=== PATIENT | male | born 1975 ===

== ENCOUNTER 2022-11-02 23:47 | Inpatient (IN) | payer BC, SELFPAY ==
[2022-11-02 23:55] VITALS: BP 149/70; PULSE 113; RESP 19; TEMP 38.4; O2SAT 93; BMI 27.1
[2022-11-03] VITALS (28 sets, daily range): BP systolic 115–132; BP diastolic 63–77; PULSE 70–98; RESP 16–35; TEMP 36.4–39.8; O2SAT 92–96; BMI 27.1
--- NOTE | 2022-11-03 00:02 | DI.RAD.S_ITS ---
PROCEDURE: XR CHEST 1V INDICATIONS: suspected sepsis TECHNIQUE: One view of the chest was acquired. COMPARISON: None. FINDINGS: Surgical changes and devices: None. Lungs and pleura: There are indistinct opacities in the lung bases bilaterally. No pleural effusions or pneumothorax. Mediastinum: Mediastinal contours appear normal. Heart size is normal. Bones and chest wall: No suspicious bony lesions. Overlying soft tissues appear unremarkable. IMPRESSION: 1. Indistinct opacities in the lung bases bilaterally are nonspecific but suggestive of pneumonia. Dictated by: Alverto Sánchez M.D. on 11/03/2022 at 1:43 Approved by: Alverto Sánchez M.D. on 11/03/2022 at 1:44
[2022-11-03 00:32] LABS: INR 1.6 (0.9-1.3); Prothrombin Time 18.3 SECONDS (10.1-12.7)
[2022-11-03 00:34] LABS: Hematocrit 28.7 % (41-53); Hemoglobin 9.6 g/dL (13.5-17.5); Mean Corpuscular HGB Conc 33.6 % (30-36); Mean Corpuscular Volume 95.5 fL (80-100); Platelet Count 149 X10^3/uL (150-400); Red Blood Cell Count 3.01 X10^6/uL (4.5-5.9); Red Cell Distribution Width 16.9 % (11.6-14.8)
[2022-11-03 00:35] LABS: PTT Partial Thromboplastin Tim 29 SECONDS (26-36)
[2022-11-03] MEDS: ONDANSETRON 4 MG/2 ML INJ IV (00:37)
[2022-11-03] MEDS: SODIUM CHLORIDE 0.9% 1,000 ML 1000 ML IV (00:37)
[2022-11-03] MEDS: KETOROLAC 30 MG/ML VIAL 15 MG IV (00:37)
[2022-11-03 00:38] LABS: Add Manual Diff / Slide Review YES
[2022-11-03 00:45] LABS: Alanine Aminotransferase 22 IU/L (<50); Albumin 4.1 g/dL (3.5-5.0); Albumin Globulin Ratio 1.1 (1.0-2.8); Alkaline Phosphatase 51 U/L (38-126); Aspartate Aminotransferase 28 IU/L (17-59); BUN Creatinine Ratio 18.5 (6-22); Bilirubin Total 2.5 mg/dL (0.2-1.3); Blood Urea Nitrogen 27 mg/dL (9-20); Calcium 8.6 mg/dL (8.4-10.2); Carbon Dioxide 22 mmol/L (22-32); Chloride 92 mmol/L (98-107); Estimated Glomerular Filt Rate 59 mL/min (>60); Globulin 3.8 g/dL (1.7-4.1); Glucose 124 mg/dL (70-100); HEMOLYSIS < 15 (0-50); Lactate (Lactic Acid) 1.6 mmol/L (0.7-2.1); Lipase 51 U/L (23-300); Potassium 4.3 mmol/L (3.4-5.1); Sodium 125 mmol/L (137-145); Total Protein 7.9 g/dL (6.3-8.2)
--- NOTE | 2022-11-03 00:56 | ED_ITS ---
HPI - Abdominal Pain General Chief Complaint: Abdominal Pain Stated Complaint: Abnormal EKG Time Seen by Provider: 11/03/22 00:41 Source: patient Mode of arrival: Ambulatory History of Present Illness HPI narrative: Patient is a 47-year-old male with past medical history of hypertension presenting today with 5 days of diarrhea. He reports he and his girlfriend went to [place] they traveled around [place] the mountains they both had some diarrhea she actually got better but he is had persistent diarrhea about 8 times a day. Fever body aches. No nausea or vomiting some abdominal cramping. No chest pain or palpitations no dizziness or lightheadedness. However it has been pretty persistent and he generally does not feel. He denies any significant weight loss. Related Data Allergies Allergy/AdvReac Type Severity Reaction Status Date / Time No Known Drug Allergies Allergy Verified 11/02/22 23:54 Review of Systems Review of Systems ROS Unobtainable: All systems reviewed & are unremarkable except as noted in HPI and below Patient History Social History Smoking Status: Never smoker Smoking Status: Never smoker alcohol intake frequency: a few times a week Substance Use Type: does not use Exam Initial Vital Signs Initial Vital Signs: Vital Signs Temperature 101.1 F H 11/02/22 23:55 Pulse Rate 113 H 11/02/22 23:55 Respiratory Rate 19 11/02/22 23:55 Blood Pressure 149/70 H 11/02/22 23:55 Pulse Oximetry 93 11/02/22 23:55 Oxygen Delivery Method Room Air 11/02/22 23:55 GENERAL: Alert 47-year-old male slightly diaphoretic and warm to touch HEENT: Head atraumatic,EOMI, pupils reactive, face symmetric, moist mucous m embranes CARDIOVASCULAR: tachycardic regular no murmurs RESPIRATORY: Breath sounds equal bilaterally, no wheezes rales or rhonchi. ABDOMEN: Soft, nontender. Normoactive bowel sounds all 4 quadrants. No guarding or rebound. No splenomegaly or hepatomegaly appreciated EXTREMITIES: Normal range of motion, no clubbing or edema. Neurovascularly intact NEUROLOGICAL: Alert and oriented x4. SKIN: Warm, dry, no laceration, no petechiae, no rashes or lesions. Course Orders Ordered: ED Orders 11/03/22 00:02 XR chest 1V Stat EKG-12 Lead Stat RT Consult Eval and Treat NOW 11/03/22 00:15 Complete Blood Count AUTO DIFF Stat Comprehensive Metabolic Panel Stat LDH [Lactate Dehydrogenase] Stat Lactate (Lactic Acid) Stat Lipase Stat PTT Partial Thromboplastin Chapo Stat Pathologist Review (for CBC) Stat Procalcitonin Stat Prothrombin Time INR Stat Uric Acid Stat 11/03/22 00:40 GI Panel (Film Array) Stat Ictotest Urine Stat Urinalysis and Microscopic Stat Urine Culture Stat 11/03/22 00:48 Blood Culture Stat 11/03/22 00:57 CBC Auto Diff [Complete Blood Count AUTO DIFF] Stat RAUL [Direct Reji] Stat 11/03/22 02:35 COVID19 -Nasal RAPID Stat 11/03/22 07:03 Immunoglobulins Panel Stat flow cytometry blood [Leuk/ Lymphom Immunophenotypin] Stat Acetaminophen (Acetaminophen 325 Mg Tablet) 650 mg PO Q6H PRN PRN Reason: Fever/Mild Pain (1-3) Sodium Chloride (Normal Saline 0.9%) 1,000 mls @ 125 mls/hr IV CONT OLIVIA Naloxone HCl (Naloxone 0.4 Mg/Ml Vial) 0.2 mg IV Q2MIN PRN PRN Reason: Opiate Reversal Ondansetron HCl (Ondansetron 4 Mg/2 Ml Inj) 4 mg IV Q8HR PRN PRN Reason: Nausea And Vomiting Discontinued Medications Acetaminophen (Acetaminophen 325 Mg Tablet) 975 mg PO NOW ONE Stop: 11/03/22 05:10 Last Admin: 11/03/22 05:16 Dose: 975 mg Documented By: REEMA Heparin Sodium (Porcine) (Heparin 5,000 Unit/Ml Vial) 5,000 unit SUBCUT BID OLIVIA Sodium Chloride (Normal Saline 0.9%) 1,000 mls @ 1,000 mls/hr IV BOLUS ONE Stop: 11/03/22 01:01 Last Infusion: 11/03/22 02:10 Dose: 0 mls/hr Documented By: Admin: 11/03/22 00:37 Dose: 1,000 mls/hr Documented By: DEEP Sodium Chloride (Normal Saline 0.9%) 2,190 mls @ 730 mls/hr 30 ml/kg infuse over 3 hr (2190 ml) IV NOW ONE Stop: 11/03/22 03:45 Last Infusion: 11/03/22 02:42 Dose: 0 mls/hr Documented By: Admin: 11/03/22 01:09 Dose: 730 mls/hr Documented By: REEMA Levofloxacin (Levaquin) 750 mg in 150 mls @ 100 mls/hr IV NOW ONE Stop: 11/03/22 02:15 Last Infusion: 11/03/22 02:41 Dose: 0 mls/hr Documented By: Admin: 11/03/22 01:08 Dose: 100 mls/hr Documented By: REEMA Vancomycin HCl (Vancomycin) 1,250 mg in 250 mls @ 250 mls/hr IV NOW ONE Stop: 11/03/22 01:46 Last Infusion: 11/03/22 02:10 Dose: 0 mls/hr Documented By: Admin: 11/03/22 01:07 Dose: 250 mls/hr Documented By: REEMA Ketorolac Tromethamine (Ketorolac 30 Mg/Ml Vial) 15 mg IV NOW ONE Stop: 11/03/22 00:25 Last Admin: 11/03/22 00:37 Dose: 15 mg Documented By: DEEP Ondansetron HCl (Ondansetron 4 Mg Odt) 4 mg SL NOW PRN PRN Reason: Nausea And Vomiting Ondansetron HCl (Ondansetron 4 Mg/2 Ml Inj) 4 mg IV NOW PRN PRN Reason: Nausea And Vomiting Last Admin: 11/03/22 00:37 Dose: 4 mg Documented By: DEEP Vital Signs Vital signs: Vital Signs - 8 hr 11/02/22 23:55 11/03/22 01:02 11/03/22 01:03 Temperature 101.1 F H Pulse Rate 113 H 96 H Respiratory Rate 19 33 H Blood Pressure 149/70 H 119/67 Pulse Oximetry 93 93 Oxygen Delivery Method Room Air 11/03/22 01:03 11/03/22 01:30 11/03/22 01:30 Temperature Pulse Rate 96 H 90 Respiratory Rate 29 H 24 Blood Pressure 115/68 Pulse Oximetry 94 94 Oxygen Delivery Method 11/03/22 02:00 11/03/22 02:00 11/03/22 02:30 Temperature Pulse Rate 91 H Respiratory Rate 26 H Blood Pressure 115/67 119/70 Pulse Oximetry 93 Oxygen Delivery Method 11/03/22 03:00 11/03/22 03:00 11/03/22 03:30 Temperature Pulse Rate 88 Respiratory Rate 22 Blood Pressure 122/73 120/69 Pulse Oximetry 94 Oxygen Delivery Method 11/03/22 03:30 11/03/22 04:00 11/03/22 04:00 Temperature Pulse Rate 87 92 H Respiratory Rate 24 20 Blood Pressure 117/70 Pulse Oximetry 95 95 Oxygen Delivery Method 11/03/22 05:16 11/03/22 04:30 11/03/22 04:30 Temperature 103.6 F H Pulse Rate 95 H Respiratory Rate 32 H Blood Pressure 128/74 Pulse Oximetry 93 Oxygen Delivery Method 11/03/22 05:00 11/03/22 05:00 11/03/22 05:30 Temperature 103.6 F H Pulse Rate 97 H Respiratory Rate 33 H Blood Pressure 132/76 129/77 Pulse Oximetry 93 Oxygen Delivery Method 11/03/22 05:30 11/03/22 06:00 11/03/22 06:00 Temperature 102 F H Pulse Rate 98 H 92 H Respiratory Rate 31 H 32 H Blood Pressure 123/70 Pulse Oximetry 92 92 Oxygen Delivery Method 11/03/22 06:15 11/03/22 06:30 11/03/22 06:30 Temperature 102 F H Pulse Rate 91 H Respiratory Rate 35 H Blood Pressure 130/67 Pulse Oximetry 95 Oxygen Delivery Method MDM - Abdominal Pain Lab Data 11/03/22 00:57 11/03/22 00:15 Labs: Lab Results 11/03/22 11/03/22 11/03/22 Range/Units 00:15 00:15 00:15 WBC 220.0 H* (4.5-11.0) X10^3/uL RBC 3.01 L (4.5-5.9) X10^6/uL Hgb 9.6 L (13.5-17.5) g/dL Hct 28.7 L (41-53) % MCV 95.5 (80-100) fL MCH 32.0 (26-34) PG MCHC 33.6 (30-36) % RDW 16.9 H (11.6-14.8) % Plt Count 149 L (150-400) X10^3/uL Neut % (Auto) Not Reportable Lymph % (Auto) Not Reportable [place] % (Auto) Not Reportable Eos % (Auto) Not Reportable Baso % (Auto) Not Reportable Lymph # (Auto) Not Reportable [place] # (Auto) Not Reportable Baso # (Auto) Not Reportable Total Counted 100 Seg Neutrophils % 3.0 L (38-70) % Lymphocytes % (Manual) 91.0 H (25-45) % Atypical Lymphs % 6.0 H ( - 0) % Neutrophils # (Manual) 6600 H (5008-0482) /uL Smudge Cells 2+ H Toxic Granulation RBC Morphology See below Anisocytosis 1+ H PT 18.3 H (10.1-12.7) SECONDS INR 1.6 H (0.9-1.3) APTT 29 (26-36) SECONDS Sodium 125 L (137-145) mmol/L Potassium 4.3 (3.4-5.1) mmol/L Chloride 92 L (98-107) mmol/L Carbon Dioxide 22 (22-32) mmol/L BUN 27 H (9-20) mg/dL Creatinine 1.46 H (0.66-1.25) mg/dL Estimated GFR 59 L (>60) mL/min BUN/Creatinine Ratio 18.5 (6-22) Glucose 124 H (70-100) mg/dL Lactate (0.7-2.1) mmol/L Uric Acid (3.5-8.5) mg/dL Calcium 8.6 (8.4-10.2) mg/dL Total Bilirubin 2.5 H (0.2-1.3) mg/dL AST 28 (17-59) IU/L ALT 22 (<50) IU/L Alkaline Phosphatase 51 (38-126) U/L Lactate Dehydrogenase (120-246) U/L Total Protein 7.9 (6.3-8.2) g/dL Albumin 4.1 (3.5-5.0) g/dL Globulin 3.8 (1.7-4.1) g/dL Albumin/Globulin Ratio 1.1 (1.0-2.8) Lipase 51 (23-300) U/L Procalcitonin 6.38 H (<0.5) ng/mL Urine Color Urine Appearance Urine pH (4.5-8.0) Ur Specific [place] (1.000-1.035) Urine Protein (Negative) Urine Glucose (UA) (Negative) g/dL Urine Ketones (NEGATIVE) Urine Occult Blood (Negative) Urine Nitrate (Negative) Urine Bilirubin (NEGATIVE) Ur Bilirubin Confirm (Negative) Urine Urobilinogen (0.2) E.U./dL Ur Leukocyte Esterase (NEGATIVE) Urine RBC (0-5/HPF) Urine WBC (0-5/HPF) Ur Squamous Epith Cells (0-5/HPF) Ur Transition Epith Cell (0-5/HPF) Amorphous Sediment Urine Bacteria (None) Hyaline Casts (None) Granular Casts (None) WBC Casts (None) Ur Culture Indicated? Stl C. cayetanensis PCR (Not Detect) Stool Rotavirus (PCR) (Not Detect) Stool Adenovirus (PCR) (Not Detect) Stool Astrovirus (PCR) (Not Detect) Stool Cryptosporidium PCR (Not Detect) Stl E.coli Shiga Tox PCR (Not Detect) St Sh/Enteroin Ecoli PCR (Not Detect) Stool E coli O157 PCR Stl Enterotoxigenic E PCR (Not Detect) Stool EPEC (PCR) (Not Detect) Stl E. histolytica PCR (Not Detect) Stool Giardia Lamblia PCR (Not Detect) Stool Sapovirus (PCR) (Not Detect) Stl P. shigelloides PCR (Not Detect) St Y.enterocolitica PCR (Not Detect) Stool Vibrio (PCR) (Not Detect) Stl Vibrio cholerae PCR (Not Detect) Stl Enteroaggr Ecoli PCR (Not Detect) Stl Norovirus GI/GII PCR (Not Detect) Campylobacter (PCR) (Not Detect) C. difficile Tox (PCR) (Not Detect) SARS-CoV-2 (PCR) (Negative) Salmonella (PCR) (Not Detect) Direct Antiglob Test 11/03/22 11/03/22 11/03/22 Range/Units 00:15 00:15 00:40 WBC (4.5-11.0) X10^3/uL RBC (4.5-5.9) X10^6/uL Hgb (13.5-17.5) g/dL Hct (41-53) % MCV (80-100) fL MCH (26-34) PG MCHC (30-36) % RDW (11.6-14.8) % Plt Count (150-400) X10^3/uL Neut % (Auto) Lymph % (Auto) [place] % (Auto) Eos % (Auto) Baso % (Auto) Lymph # (Auto) [place] # (Auto) Baso # (Auto) Total Counted Seg Neutrophils % (38-70) % Lymphocytes % (Manual) (25-45) % Atypical Lymphs % ( - 0) % Neutrophils # (Manual) (7995-2546) /uL Smudge Cells Toxic Granulation RBC Morphology Anisocytosis PT (10.1-12.7) SECONDS INR (0.9-1.3) APTT (26-36) SECONDS Sodium (137-145) mmol/L Potassium (3.4-5.1) mmol/L Chloride (98-107) mmol/L Carbon Dioxide (22-32) mmol/L BUN (9-20) mg/dL Creatinine (0.66-1.25) mg/dL Estimated GFR (>60) mL/min BUN/Creatinine Ratio (6-22) Glucose (70-100) mg/dL Lactate 1.6 (0.7-2.1) mmol/L Uric Acid 6.6 (3.5-8.5) mg/dL Calcium (8.4-10.2) mg/dL Total Bilirubin (0.2-1.3) mg/dL AST (17-59) IU/L ALT (<50) IU/L Alkaline Phosphatase (38-126) U/L Lactate Dehydrogenase 224 (120-246) U/L Total Protein (6.3-8.2) g/dL Albumin (3.5-5.0) g/dL Globulin (1.7-4.1) g/dL Albumin/Globulin Ratio (1.0-2.8) Lipase (23-300) U/L Procalcitonin (<0.5) ng/mL Urine Color Urine Appearance Urine pH (4.5-8.0) Ur Specific [place] (1.000-1.035) Urine Protein (Negative) Urine Glucose (UA) (Negative) g/dL Urine Ketones (NEGATIVE) Urine Occult Blood (Negative) Urine Nitrate (Negative) Urine Bilirubin (NEGATIVE) Ur Bilirubin Confirm (Negative) Urine Urobilinogen (0.2) E.U./dL Ur Leukocyte Esterase (NEGATIVE) Urine RBC (0-5/HPF) Urine WBC (0-5/HPF) Ur Squamous Epith Cells (0-5/HPF) Ur Transition Epith Cell (0-5/HPF) Amorphous Sediment Urine Bacteria (None) Hyaline Casts (None) Granular Casts (None) WBC Casts (None) Ur Culture Indicated? Stl C. cayetanensis PCR Not detected (Not Detect) Stool Rotavirus (PCR) Not detected (Not Detect) Stool Adenovirus (PCR) Not detected (Not Detect) Stool Astrovirus (PCR) Not detected (Not Detect) Stool Cryptosporidium PCR Not detected (Not Detect) Stl E.coli Shiga Tox PCR Not detected (Not Detect) St Sh/Enteroin Ecoli PCR Not detected (Not Detect) Stool E coli O157 PCR Not Reportable Stl Enterotoxigenic E PCR Detected H (Not Detect) Stool EPEC (PCR) Detected H (Not Detect) Stl E. histolytica PCR Not detected (Not Detect) Stool Giardia Lamblia PCR Not detected (Not Detect) Stool Sapovirus (PCR) Not detected (Not Detect) Stl P. shigelloides PCR Not detected (Not Detect) St Y.enterocolitica PCR Not detected (Not Detect) Stool Vibrio (PCR) Not detected (Not Detect) Stl Vibrio cholerae PCR Not detected (Not Detect) Stl Enteroaggr Ecoli PCR Detected H (Not Detect) Stl Norovirus GI/GII PCR Not detected (Not Detect) Campylobacter (PCR) Not detected (Not Detect) C. difficile Tox (PCR) Not detected (Not Detect) SARS-CoV-2 (PCR) (Negative) Salmonella (PCR) Not detected (Not Detect) Direct Antiglob Test 11/03/22 11/03/22 11/03/22 Range/Units 00:40 00:57 00:57 WBC 206.1 H* (4.5-11.0) X10^3/uL RBC 2.77 L (4.5-5.9) X10^6/uL Hgb 8.9 L (13.5-17.5) g/dL Hct 26.2 L (41-53) % MCV 94.9 (80-100) fL MCH 32.1 (26-34) PG MCHC 33.8 (30-36) % RDW 16.8 H (11.6-14.8) % Plt Count 137 L (150-400) X10^3/uL Neut % (Auto) Not Reportable Lymph % (Auto) Not Reportable [place] % (Auto) Not Reportable Eos % (Auto) Not Reportable Baso % (Auto) Not Reportable Lymph # (Auto) Not Reportable [place] # (Auto) Not Reportable Baso # (Auto) Not Reportable Total Counted 100 Seg Neutrophils % 3.0 L (38-70) % Lymphocytes % (Manual) 88.0 H (25-45) % Atypical Lymphs % 9.0 H ( - 0) % Neutrophils # (Manual) 6183 H (1332-3389) /uL Smudge Cells 2+ H Toxic Granulation Present H RBC Morphology See below Anisocytosis 1+ H PT (10.1-12.7) SECONDS INR (0.9-1.3) APTT (26-36) SECONDS Sodium (137-145) mmol/L Potassium (3.4-5.1) mmol/L Chloride (98-107) mmol/L Carbon Dioxide (22-32) mmol/L BUN (9-20) mg/dL Creatinine (0.66-1.25) mg/dL Estimated GFR (>60) mL/min BUN/Creatinine Ratio (6-22) Glucose (70-100) mg/dL Lactate (0.7-2.1) mmol/L Uric Acid (3.5-8.5) mg/dL Calcium (8.4-10.2) mg/dL Total Bilirubin (0.2-1.3) mg/dL AST (17-59) IU/L ALT (<50) IU/L Alkaline Phosphatase (38-126) U/L Lactate Dehydrogenase (120-246) U/L Total Protein (6.3-8.2) g/dL Albumin (3.5-5.0) g/dL Globulin (1.7-4.1) g/dL Albumin/Globulin Ratio (1.0-2.8) Lipase (23-300) U/L Procalcitonin (<0.5) ng/mL Urine Color Dark yellow Urine Appearance Cloudy Urine pH 5.0 (4.5-8.0) Ur Specific [place] >=1.030 H (1.000-1.035) Urine Protein 3+ H (Negative) Urine Glucose (UA) Negative (Negative) g/dL Urine Ketones Trace H (NEGATIVE) Urine Occult Blood 1+ H (Negative) Urine Nitrate Positive H (Negative) Urine Bilirubin 2+ H (NEGATIVE) Ur Bilirubin Confirm Positive H (Negative) Urine Urobilinogen 1.0 (0.2) E.U./dL Ur Leukocyte Esterase Trace H (NEGATIVE) Urine RBC 1-5/hpf (0-5/HPF) Urine WBC 0-1/hpf (0-5/HPF) Ur Squamous Epith Cells 0-1 /hpf (0-5/HPF) Ur Transition Epith Cell 0-1/hpf (0-5/HPF) Amorphous Sediment 2+ Urine Bacteria Moderate (10-30) H (None) Hyaline Casts 0-1/lpf (None) Granular Casts 5-10/lpf (None) WBC Casts 0-1/lpf (None) Ur Culture Indicated? Specimen cultured Stl C. cayetanensis PCR (Not Detect) Stool Rotavirus (PCR) (Not Detect) Stool Adenovirus (PCR) (Not Detect) Stool Astrovirus (PCR) (Not Detect) Stool Cryptosporidium PCR (Not Detect) Stl E.coli Shiga Tox PCR (Not Detect) St Sh/Enteroin Ecoli PCR (Not Detect) Stool E coli O157 PCR Stl Enterotoxigenic E PCR (Not Detect) Stool EPEC (PCR) (Not Detect) Stl E. histolytica PCR (Not Detect) Stool Giardia Lamblia PCR (Not Detect) Stool Sapovirus (PCR) (Not Detect) Stl P. shigelloides PCR (Not Detect) St Y.enterocolitica PCR (Not Detect) Stool Vibrio (PCR) (Not Detect) Stl Vibrio cholerae PCR (Not Detect) Stl Enteroaggr Ecoli PCR (Not Detect) Stl Norovirus GI/GII PCR (Not Detect) Campylobacter (PCR) (Not Detect) C. difficile Tox (PCR) (Not Detect) SARS-CoV-2 (PCR) (Negative) Salmonella (PCR) (Not Detect) Direct Antiglob Test Positive 11/03/22 Range/Units 02:35 WBC (4.5-11.0) X10^3/uL RBC (4.5-5.9) X10^6/uL Hgb (13.5-17.5) g/dL Hct (41-53) % MCV (80-100) fL MCH (26-34) PG MCHC (30-36) % RDW (11.6-14.8) % Plt Count (150-400) X10^3/uL Neut % (Auto) Lymph % (Auto) [place] % (Auto) Eos % (Auto) Baso % (Auto) Lymph # (Auto) [place] # (Auto) Baso # (Auto) Total Counted Seg Neutrophils % (38-70) % Lymphocytes % (Manual) (25-45) % Atypical Lymphs % ( - 0) % Neutrophils # (Manual) (1605-5732) /uL Smudge Cells Toxic Granulation RBC Morphology Anisocytosis PT (10.1-12.7) SECONDS INR (0.9-1.3) APTT (26-36) SECONDS Sodium (137-145) mmol/L Potassium (3.4-5.1) mmol/L Chloride (98-107) mmol/L Carbon Dioxide (22-32) mmol/L BUN (9-20) mg/dL Creatinine (0.66-1.25) mg/dL Estimated GFR (>60) mL/min BUN/Creatinine Ratio (6-22) Glucose (70-100) mg/dL Lactate (0.7-2.1) mmol/L Uric Acid (3.5-8.5) mg/dL Calcium (8.4-10.2) mg/dL Total Bilirubin (0.2-1.3) mg/dL AST (17-59) IU/L ALT (<50) IU/L Alkaline Phosphatase (38-126) U/L Lactate Dehydrogenase (120-246) U/L Total Protein (6.3-8.2) g/dL Albumin (3.5-5.0) g/dL Globulin (1.7-4.1) g/dL Albumin/Globulin Ratio (1.0-2.8) Lipase (23-300) U/L Procalcitonin (<0.5) ng/mL Urine Color Urine Appearance Urine pH (4.5-8.0) Ur Specific [place] (1.000-1.035) Urine Protein (Negative) Urine Glucose (UA) (Negative) g/dL Urine Ketones (NEGATIVE) Urine Occult Blood (Negative) Urine Nitrate (Negative) Urine Bilirubin (NEGATIVE) Ur Bilirubin Confirm (Negative) Urine Urobilinogen (0.2) E.U./dL Ur Leukocyte Esterase (NEGATIVE) Urine RBC (0-5/HPF) Urine WBC (0-5/HPF) Ur Squamous Epith Cells (0-5/HPF) Ur Transition Epith Cell (0-5/HPF) Amorphous Sediment Urine Bacteria (None) Hyaline Casts (None) Granular Casts (None) WBC Casts (None) Ur Culture Indicated? Stl C. cayetanensis PCR (Not Detect) Stool Rotavirus (PCR) (Not Detect) Stool Adenovirus (PCR) (Not Detect) Stool Astrovirus (PCR) (Not Detect) Stool Cryptosporidium PCR (Not Detect) Stl E.coli Shiga Tox PCR (Not Detect) St Sh/Enteroin Ecoli PCR (Not Detect) Stool E coli O157 PCR Stl Enterotoxigenic E PCR (Not Detect) Stool EPEC (PCR) (Not Detect) Stl E. histolytica PCR (Not Detect) Stool Giardia Lamblia PCR (Not Detect) Stool Sapovirus (PCR) (Not Detect) Stl P. shigelloides PCR (Not Detect) St Y.enterocolitica PCR (Not Detect) Stool Vibrio (PCR) (Not Detect) Stl Vibrio cholerae PCR (Not Detect) Stl Enteroaggr Ecoli PCR (Not Detect) Stl Norovirus GI/GII PCR (Not Detect) Campylobacter (PCR) (Not Detect) C. difficile Tox (PCR) (Not Detect) SARS-CoV-2 (PCR) Negative (Negative) Salmonella (PCR) (Not Detect) Direct Antiglob Test MDM Narrative Medical decision making narrative: Patient 47-year-old male presenting to gastroenteritis like symptoms her traveling. He is had about 5-6 days of diarrhea is tolerating is febrile and here in the ED. Sepsis orders started. He is found to have critical WBC of 220. It is rechecked in his 2005. Differential includes smudge cells concerning for CLL. He has no prior history of CLL leukemia. Lactate 1.6 with procalcitonin 6.3. GI panel is positive for multiple coli infections. Urine is also positive for nitrates. Patient is given vancomycin and Levaquin. He continues to have fever in the emergency department is overall stable. Sodium is mildly low 125, potassium 4.3 chloride 92 BUN 271.46. Mildly dehydrated. Bilirubin of be 2.5 as well. , hematology [facility] updated patient's symptoms test results states this is likely an incidental finding. Treat underlying gastroenteritis 1st and then have him follow-up outpatient for treatment of what is likely CLL. No need for emergent transfer. , furnace loader at [facility] dated patient's symptoms test results request further orders. Agrees that this is likely an incidental finding and to treat the underlying process however does need follow-up closely. Dr. Louis accepts patient Discharge Plan Departure Patient Disposition: Admitted as Observation Clinical Impression: Gastroenteritis, Chronic lymphocytic leukemia Admit Date/Time: 11/03/22 06:37 Admit Provider: Ervin Louis
[2022-11-03 00:59] LABS: Neutrophils Absolute Manual 6600 /uL (3000-5900); Total Cells Counted 100
[2022-11-03 01:00] LABS: Anisocytosis 1+
[2022-11-03 01:01] LABS: Procalcitonin 6.38 ng/mL (<0.5); Smudge Cells 2+
[2022-11-03] MEDS: VANCOMYCIN 1,250 MG/250 ML PIGGYBACK 250 MG IV ×2 (01:07→12:14)
[2022-11-03] MEDS: levoFLOXacin 750 MG/150 ML PIGGYBACK 100 MG IV (01:08)
[2022-11-03] MEDS: SODIUM CHLORIDE 0.9% 2,190 ML 730 ML IV (01:09)
[2022-11-03 01:10] LABS: Lactate Dehydrogenase 224 U/L (120-246); Uric Acid 6.6 mg/dL (3.5-8.5)
[2022-11-03 01:12] LABS: Hematocrit 26.2 % (41-53); Hemoglobin 8.9 g/dL (13.5-17.5); Mean Corpuscular HGB Conc 33.8 % (30-36); Mean Corpuscular Hemoglobin 32.1 PG (26-34); Mean Corpuscular Volume 94.9 fL (80-100); Platelet Count 137 X10^3/uL (150-400); Red Blood Cell Count 2.77 X10^6/uL (4.5-5.9); Red Cell Distribution Width 16.8 % (11.6-14.8)
[2022-11-03 01:14] LABS: Add Manual Diff / Slide Review YES
[2022-11-03 01:15] LABS: White Blood Cell Count 206.1 X10^3/uL (4.5-11.0)
[2022-11-03 01:43] LABS: Anisocytosis 1+; Neutrophils Absolute Manual 6183 /uL (3000-5900); Smudge Cells 2+; Total Cells Counted 100; Toxic Granulation Present
[2022-11-03 02:50] LABS: Adenovirus F 40/41 Not Detected (Not Detect); Astrovirus Not Detected (Not Detect); Campylobacter Not Detected (Not Detect); Clostridium difficile toxin AB Not Detected (Not Detect); Cryptosporidium Not Detected (Not Detect); Cyclospora cayetanensis Not Detected (Not Detect); Entamoeba histolytica Not Detected (Not Detect); Enteroaggregative E.coli Detected (Not Detect); Enteropathogenic E.coli Detected (Not Detect); Enterotoxigenic E.coli It/st Detected (Not Detect); Giardia lamblia Not Detected (Not Detect); Norovirus GI/GII Not Detected (Not Detect); Plesiomonsa shigelloides Not Detected (Not Detect); Rotavirus A Not Detected (Not Detect); Salmonella Not Detected (Not Detect); Sapovirus Not Detected (Not Detect); Shiga-like toxin-prod E.coli Not Detected (Not Detect); Shigella/Enteroinvasive E.coli Not Detected (Not Detect); Vibrio Not Detected (Not Detect); Vibrio cholerae Not Detected (Not Detect); Yersinia enterocolitica Not Detected (Not Detect)
[2022-11-03 03:10] LABS: COVID19 -Nasal RAPID Negative (Negative)
[2022-11-03 03:25] LABS: Appearance Urine UA CLOUDY; Bilirubin Urine UA 2+ (NEGATIVE); Glucose Urine UA NEGATIVE (Negative); Ketones Urine UA TRACE (NEGATIVE); Leukocyte Esterase Urine UA TRACE (NEGATIVE); Nitrite Urine UA POSITIVE (Negative); Occult Blood Urine UA 1+ (Negative); Protein Urine UA 3+ (Negative); Specific Gravity Urine UA >=1.030 (1.000-1.035)
[2022-11-03 03:28] LABS: Color Urine UA Dark Yellow; Ictotest Urine Positive (Negative); WBC Urine 0-1/HPF (0-5/HPF)
[2022-11-03 03:29] LABS: Bacteria Urine Moderate (10-30); Hyaline Casts Urine 0-1/LPF; RBC Urine 1-5/HPF (0-5/HPF); Squamous Epithelial Cell Urine 0-1 /HPF (0-5/HPF)
[2022-11-03 03:30] LABS: Granular Casts Urine 5-10/LPF; White Blood Cell Casts Urine 0-1/LPF
[2022-11-03 03:31] LABS: Amorphous Sediment Urine 2+; Transitional Epi Cells Urine 0-1/HPF (0-5/HPF)
[2022-11-03 03:36] LABS: Culture Indicated Urine Specimen Cultured
--- NOTE | 2022-11-03 04:02 | PC.NURSE ---
Pt only received one EKG at beginning of stay. 3 orders were put in by RT and charted as completed but only 1 was actually completed.
[2022-11-03] MEDS: ACETAMINOPHEN 325 MG TABLET 975 MG PO (05:16)
--- NOTE | 2022-11-03 07:20 | P.HP_ITS ---
History of Present Illness History of Present Illness Date Patient Seen: 11/03/22 Time Patient Seen: 06:45 Chief complaint: Abnormal EKG Narrative: Mr. Lundberg is a 47M with PMH HTN who presents to the hospital with diarrhea. He had recent travel to [place]. 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 He developed diarrhea and abdominal cramping 6 days ago on Saturday. He has noted no blood in his stool. He has had 6-8 episodes of diarrhea daily. He feels he has been able to stay hydrated. He has no lightheaded or dizziness. Prior to this illness he has had no issues, no fevers, chills, night sweats, weight loss. He has noted no brashes, bruising, abnormal bleeding. He has noted no fatigue. In the ED workup was done, vitals notable for fever to 101.1, heart rate 110s, blood pressure 140s/70s, sats 93% on room air. Labs reviewed by me and notable for WBC 206.1, hgb 8.9, plts 137. Na 125, BUN 27, creatinine 1.46. Bili 2.5. Procal 6.38. Ua notable for occult blood, nitrates, bilirubin, trace leuk esterase, moderate bacteria. Stool PCR notable for ETEC, EAEC, EPEC but negative for shiga toxian and e. coli o157. Chest xray reviewed by me and with questionable lung opacity. He was ordered for fluids and antibiotics and admitted for further treatment. Family history: he denies any significant family history of cancer [facility] Social History Smoking Status: Never smoker Meds Home Medications and Allergies Allergies Allergy/AdvReac Type Severity Reaction Status Date / Time No Known Drug Allergies Allergy Verified 11/02/22 23:54 Review of Systems Review of Systems Narrative: 14 sytstems reviewed and negative aside from what is noted in HPI Exam Vital Signs (past 8 hours): - 11/02/22 23:55 11/03/22 01:02 11/03/22 01:03 Temperature 101.1 F H Pulse Rate 113 H 96 H Respiratory Rate 19 33 H Blood Pressure 149/70 H 119/67 Pulse Oximetry 93 93 Oxygen Delivery Method Room Air 11/03/22 01:03 11/03/22 01:30 11/03/22 01:30 Temperature Pulse Rate 96 H 90 Respiratory Rate 29 H 24 Blood Pressure 115/68 Pulse Oximetry 94 94 Oxygen Delivery Method 11/03/22 02:00 11/03/22 02:00 11/03/22 02:30 Temperature Pulse Rate 91 H Respiratory Rate 26 H Blood Pressure 115/67 119/70 Pulse Oximetry 93 Oxygen Delivery Method 11/03/22 03:00 11/03/22 03:00 11/03/22 03:30 Temperature Pulse Rate 88 Respiratory Rate 22 Blood Pressure 122/73 120/69 Pulse Oximetry 94 Oxygen Delivery Method 11/03/22 03:30 11/03/22 04:00 11/03/22 04:00 Temperature Pulse Rate 87 92 H Respiratory Rate 24 20 Blood Pressure 117/70 Pulse Oximetry 95 95 Oxygen Delivery Method 11/03/22 05:16 11/03/22 04:30 11/03/22 04:30 Temperature 103.6 F H Pulse Rate 95 H Respiratory Rate 32 H Blood Pressure 128/74 Pulse Oximetry 93 Oxygen Delivery Method 11/03/22 05:00 11/03/22 05:00 11/03/22 05:30 Temperature 103.6 F H Pulse Rate 97 H Respiratory Rate 33 H Blood Pressure 132/76 129/77 Pulse Oximetry 93 Oxygen Delivery Method 11/03/22 05:30 11/03/22 06:00 11/03/22 06:00 Temperature 102 F H Pulse Rate 98 H 92 H Respiratory Rate 31 H 32 H Blood Pressure 123/70 Pulse Oximetry 92 92 Oxygen Delivery Method 11/03/22 06:15 Temperature 102 F H Pulse Rate Respiratory Rate Blood Pressure Pulse Oximetry Oxygen Delivery Method Oxygen Delivery Method Room Air Narrative Exam Narrative: GEN: no acute distress HEENT: moist mucous membranes, PERRL NECK: trachea midline, no jvd PULM: clear bilaterally, no wheezes, rhonchi, rales CV: regular rate and rhythm, no murmurs ABD: soft, nontender, nondistended, no organomegaly EXT: warm and well perfused with no edema SKIN: no rashes, petechia noted NEURO: awake, alert, oriented, no focal deficits Objective Labs 11/03/22 00:57 11/03/22 00:15 Labs: Laboratory Results - last 24 hr 11/03/22 11/03/22 11/03/22 00:15 00:15 00:15 WBC 220.0 H* RBC 3.01 L Hgb 9.6 L Hct 28.7 L MCV 95.5 MCH 32.0 MCHC 33.6 RDW 16.9 H Plt Count 149 L Neut % (Auto) Not Reportable Lymph % (Auto) Not Reportable Island % (Auto) Not Reportable Eos % (Auto) Not Reportable Baso % (Auto) Not Reportable Lymph # (Auto) Not Reportable [place] # (Auto) Not Reportable Baso # (Auto) Not Reportable Total Counted 100 Seg Neutrophils % 3.0 L Lymphocytes % (Manual) 91.0 H Atypical Lymphs % 6.0 H Neutrophils # (Manual) 6600 H Smudge Cells 2+ H Toxic Granulation RBC Morphology See below Anisocytosis 1+ H PT 18.3 H INR 1.6 H APTT 29 Sodium 125 L Potassium 4.3 Chloride 92 L Carbon Dioxide 22 BUN 27 H Creatinine 1.46 H Estimated GFR 59 L BUN/Creatinine Ratio 18.5 Glucose 124 H Lactate Uric Acid Calcium 8.6 Total Bilirubin 2.5 H AST 28 ALT 22 Alkaline Phosphatase 51 Lactate Dehydrogenase Total Protein 7.9 Albumin 4.1 Globulin 3.8 Albumin/Globulin Ratio 1.1 Lipase 51 Procalcitonin 6.38 H Urine Color Urine Appearance Urine pH Ur Specific [place] Urine Protein Urine Glucose (UA) Urine Ketones Urine Occult Blood Urine Nitrate Urine Bilirubin Ur Bilirubin Confirm Urine Urobilinogen Ur Leukocyte Esterase Urine RBC Urine WBC Ur Squamous Epith Cells Ur Transition Epith Cell Amorphous Sediment Urine Bacteria Hyaline Casts Granular Casts WBC Casts Ur Culture Indicated? Stl C. cayetanensis PCR Stool Rotavirus (PCR) Stool Adenovirus (PCR) Stool Astrovirus (PCR) Stool Cryptosporidium PCR Stl E.coli Shiga Tox PCR St Sh/Enteroin Ecoli PCR Stool E coli O157 PCR Stl Enterotoxigenic E PCR Stool EPEC (PCR) Stl E. histolytica PCR Stool Giardia Lamblia PCR Stool Sapovirus (PCR) Stl P. shigelloides PCR St Y.enterocolitica PCR Stool Vibrio (PCR) Stl Vibrio cholerae PCR Stl Enteroaggr Ecoli PCR Stl Norovirus GI/GII PCR Campylobacter (PCR) C. difficile Tox (PCR) SARS-CoV-2 (PCR) Salmonella (PCR) 11/03/22 11/03/22 11/03/22 00:15 00:15 00:40 WBC RBC Hgb Hct MCV MCH MCHC RDW Plt Count Neut % (Auto) Lymph % (Auto) [place] % (Auto) Eos % (Auto) Baso % (Auto) Lymph # (Auto) [place] # (Auto) Baso # (Auto) Total Counted Seg Neutrophils % Lymphocytes % (Manual) Atypical Lymphs % Neutrophils # (Manual) Smudge Cells Toxic Granulation RBC Morphology Anisocytosis PT INR APTT Sodium Potassium Chloride Carbon Dioxide BUN Creatinine Estimated GFR BUN/Creatinine Ratio Glucose Lactate 1.6 Uric Acid 6.6 Calcium Total Bilirubin AST ALT Alkaline Phosphatase Lactate Dehydrogenase 224 Total Protein Albumin Globulin Albumin/Globulin Ratio Lipase Procalcitonin Urine Color Urine Appearance Urine pH Ur Specific [place] Urine Protein Urine Glucose (UA) Urine Ketones Urine Occult Blood Urine Nitrate Urine Bilirubin Ur Bilirubin Confirm Urine Urobilinogen Ur Leukocyte Esterase Urine RBC Urine WBC Ur Squamous Epith Cells Ur Transition Epith Cell Amorphous Sediment Urine Bacteria Hyaline Casts Granular Casts WBC Casts Ur Culture Indicated? Stl C. cayetanensis PCR Not detected Stool Rotavirus (PCR) Not detected Stool Adenovirus (PCR) Not detected Stool Astrovirus (PCR) Not detected Stool Cryptosporidium PCR Not detected Stl E.coli Shiga Tox PCR Not detected St Sh/Enteroin Ecoli PCR Not detected Stool E coli O157 PCR Not Reportable Stl Enterotoxigenic E PCR Detected H Stool EPEC (PCR) Detected H Stl E. histolytica PCR Not detected Stool Giardia Lamblia PCR Not detected Stool Sapovirus (PCR) Not detected Stl P. shigelloides PCR Not detected St Y.enterocolitica PCR Not detected Stool Vibrio (PCR) Not detected Stl Vibrio cholerae PCR Not detected Stl Enteroaggr Ecoli PCR Detected H Stl Norovirus GI/GII PCR Not detected Campylobacter (PCR) Not detected C. difficile Tox (PCR) Not detected SARS-CoV-2 (PCR) Salmonella (PCR) Not detected 11/03/22 11/03/22 11/03/22 00:40 00:57 02:35 WBC 206.1 H* RBC 2.77 L Hgb 8.9 L Hct 26.2 L MCV 94.9 MCH 32.1 MCHC 33.8 RDW 16.8 H Plt Count 137 L Neut % (Auto) Not Reportable Lymph % (Auto) Not Reportable [place] % (Auto) Not Reportable Eos % (Auto) Not Reportable Baso % (Auto) Not Reportable Lymph # (Auto) Not Reportable [place] # (Auto) Not Reportable Baso # (Auto) Not Reportable Total Counted 100 Seg Neutrophils % 3.0 L Lymphocytes % (Manual) 88.0 H Atypical Lymphs % 9.0 H Neutrophils # (Manual) 6183 H Smudge Cells 2+ H Toxic Granulation Present H RBC Morphology See below Anisocytosis 1+ H PT INR APTT Sodium Potassium Chloride Carbon Dioxide BUN Creatinine Estimated GFR BUN/Creatinine Ratio Glucose Lactate Uric Acid Calcium Total Bilirubin AST ALT Alkaline Phosphatase Lactate Dehydrogenase Total Protein Albumin Globulin Albumin/Globulin Ratio Lipase Procalcitonin Urine Color Dark yellow Urine Appearance Cloudy Urine pH 5.0 Ur Specific [place] >=1.030 H Urine Protein 3+ H Urine Glucose (UA) Negative Urine Ketones Trace H Urine Occult Blood 1+ H Urine Nitrate Positive H Urine Bilirubin 2+ H Ur Bilirubin Confirm Positive H Urine Urobilinogen 1.0 Ur Leukocyte Esterase Trace H Urine RBC 1-5/hpf Urine WBC 0-1/hpf Ur Squamous Epith Cells 0-1 /hpf Ur Transition Epith Cell 0-1/hpf Amorphous Sediment 2+ Urine Bacteria Moderate (10-30) H Hyaline Casts 0-1/lpf Granular Casts 5-10/lpf WBC Casts 0-1/lpf Ur Culture Indicated? Specimen cultured Stl C. cayetanensis PCR Stool Rotavirus (PCR) Stool Adenovirus (PCR) Stool Astrovirus (PCR) Stool Cryptosporidium PCR Stl E.coli Shiga Tox PCR St Sh/Enteroin Ecoli PCR Stool E coli O157 PCR Stl Enterotoxigenic E PCR Stool EPEC (PCR) Stl E. histolytica PCR Stool Giardia Lamblia PCR Stool Sapovirus (PCR) Stl P. shigelloides PCR St Y.enterocolitica PCR Stool Vibrio (PCR) Stl Vibrio cholerae PCR Stl Enteroaggr Ecoli PCR Stl Norovirus GI/GII PCR Campylobacter (PCR) C. difficile Tox (PCR) SARS-CoV-2 (PCR) Negative Salmonella (PCR) Assessment & Plan Assessment & Plan narrative: 1. Sepsis secondary to E. coli gastroenteritis and UTI -patient presented with tachycardia, tachypnea, fevers -has organ dysfunction with elevated creatinine -etiology is e. coli diarrhea with eaec, etec, epec noted -patient denies bloody stool -while he does have anemia and hanny, and is possibly cause by hus, more likely related to sepsis and malignancy -additionally most common cause of hus is ehec and stool negative for shiga toxin and o157 which are most likely cause of hus 2. Probable CLL -presenting with WBC >200k -differential shows lymphocytes and smudge cells, consistent with CLL -infections are likely in setting of depressed immune system -fish, immunoglobins sent -will need urgent oncology referral upon discharge as likely has active disease and would be a candidate for treatment 3. Anemia -initial hemoglobin quite low in 9s, MCV normal -could be secondary to malignancy vs TMA syndrome, possibly enlarged spleen -bilirubin is elevated, possibly secondary to hemolysis, however ldh is normal -fractionated bilirubin -send haptoglobin, retic, iron panel, folate, b12 -blood smear sent -continue to trend and transfuse for hgb <7 4. Thrombocytopenia -etiology may be secondary to infection vs malignancy -trend daily -no indication for transfusion currently 5. HANNY -suspect secondary to hypovolemia from GI losses and possibly from infection -however patient does have E. coli infection and also notably anemia, and thrombocytopenia -has occult blood in urine -other consideration is possible HUS, or another disease in TMA syndrome -blood smear sent to [facility] for schistocytes -trend creatinine 6. Hyponatremia -suspect hypovolemic secondary to GI losses -will start IV fluids and recheck 7. Coagulopathy -PT elevated, with initial PTT normal -etiology unclear -however given sepsis would have some concern for DIC -no evidence of bleeding or thrombosis -send fibrinogen and d-dimer -already sent blood smear as above -treat sepsis as above and treat cell line abnormalities as above I have discussed plan and obtained history from patient and partner at bedside. I have discussed plan of care with ED physician and bedside nurse. I have re viewed labs, chest imaging. CODE: Full Proxy: None
--- NOTE | 2022-11-03 08:23 | DI.CT.S_ITS ---
PROCEDURE: CT CHEST ABD PEL WO CON INDICATIONS: neutropenic fever TECHNIQUE: After the administration of oral contrast, 5 mm thick sections acquired from the lung apices to the symphysis pubis. 5 mm thick coronal and sagittal reformats acquired, with additional 7 mm coronal MIP reformats through the lungs. For radiation dose reduction, the following was used: automated exposure control, adjustment of mA and/or kV according to patient size. COMPARISON: [facility], CR, XR CHEST 1V, 11/03/2022, 0:35. FINDINGS: Image quality: Excellent. CHEST: Lungs and pleura: Consolidative right lower lobe opacity is present with air bronchograms. No pleural effusions or pneumothorax. Central and peripheral airways are patent are normal in caliber. Mediastinum: Heart size is normal. No pericardial effusion. No mediastinal adenopathy by CT size criteria. Thoracic aorta and central pulmonary arteries are normal in size. Esophagus is normal in caliber. No hiatal hernia. Chest wall: No axillary or supraclavicular adenopathy by size criteria. Thyroid gland is under . ABDOMEN: Solid organs: Liver is normal in size. Gallbladder is unremarkable . Pancreas is normal in contours. Spleen is enlarged measuring 20.1 cm. No adrenal nodules. Both kidneys are normal in size, without hydronephrosis or nephrolithiasis. Peritoneum and bowel: Small and large bowel loops are normal in caliber and wall thickness. No free fluid or air. Nodes and vessels: No retroperitoneal or mesenteric adenopathy by size criteria. Aorta and inferior vena cava are normal in size. Miscellaneous: No ventral hernias. PELVIS: Genitourinary: Bladder wall thickness is normal. Miscellaneous: Bilateral fat containing inguinal hernias are present. Bones: No suspicious bony lesions. No vertebral body compression fractures. IMPRESSION: Consolidated right lower lobe opacity most consistent with pneumonia. Splenomegaly. Dictated by: Dinah Andrea M.D. on 11/03/2022 at 9:10 Approved by: Dinah Andrea M.D. on 11/03/2022 at 9:15
[2022-11-03 08:27] LABS: HEMOLYSIS 20 (0-50); Iron 22 ug/dL (49-181)
[2022-11-03] MEDS: SODIUM CHLORIDE 0.9% 1,000 ML 125 ML IV (08:30)
[2022-11-03 08:38] LABS: Percent Iron Saturation 10 % (20-50); Total Iron Binding Capacity 212 ug/dL (261-462); Transferrin 152 mg/dL (206-381)
[2022-11-03] MEDS: CEFEPIME 2 GM in SODIUM CHLORIDE 0.9% 100 ML IV ×2 (08:59→21:25)
[2022-11-03 09:03] LABS: D Dimer 1974 ng/ml (<500)
[2022-11-03 09:05] LABS: Magnesium 1.8 mg/dL (1.6-2.3)
[2022-11-03 09:07] LABS: Fibrinogen 767 mg/dL (211-428); Reticulocyte Count, Percent 1.1 % (0.9-2.6)
[2022-11-03] MEDS: metroNIDAZOLE 500 MG/100 ML PIGGYBACK 100 MG IV (09:43)
[2022-11-03 09:56] LABS: Vitamin B12 275 pg/mL (239-931)
[2022-11-03] MEDS: AZITHROMYCIN 250 MG TABLET 500 MG PO (10:01)
[2022-11-03] MEDS: ACETAMINOPHEN 325 MG TABLET 650 MG PO ×2 (11:50→18:35)
[2022-11-03 14:47] LABS: Hemoglobin 7.8 g/dL (13.5-17.5); Mean Corpuscular HGB Conc 33.4 % (30-36); Mean Corpuscular Hemoglobin 32.1 PG (26-34); Mean Corpuscular Volume 95.9 fL (80-100); Platelet Count 122 X10^3/uL (150-400); Red Blood Cell Count 2.44 X10^6/uL (4.5-5.9); Red Cell Distribution Width 16.6 % (11.6-14.8)
[2022-11-03 14:49] LABS: Hematocrit 26.1 % (41-53)
[2022-11-03 14:53] LABS: White Blood Cell Count 169.6 X10^3/uL (4.5-11.0)
--- NOTE | 2022-11-03 15:09 | CM.DANOTE ---
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 No History Provided By Patient,Medical Record Prior Living Arrangements House Comment Lives in [place] Household Members significant other Type of transporation used prior to Drives own vehicle admit Independent with ADL's Yes Is patient alert and oriented? Yes Barriers to Discharge No Comment Patient is a 47 yo male, w/ recent travel to [place] w/gf, comes in with persistent diarrhea, stool cluture came back + for 3 types of e coli. Patient is being treated aggressively w/abx. In addition, patient dx w/CLL , leukemia, is immunocompromised and found to have pneumonia. Patient surrounded by supportive family and plans to return home upon discharge w/ close outpatient follow up Discharge Plan Home Transportation Arrangement Family Referrals Initiated None needed
[2022-11-03 16:06] LABS: MRSA (Nasal) PCR Not Detected (Not Detect)
[2022-11-03 17:35] LABS: BUN Creatinine Ratio 18.9 (6-22); Blood Urea Nitrogen 24 mg/dL (9-20); Calcium 7.6 mg/dL (8.4-10.2); Carbon Dioxide 22 mmol/L (22-32); Chloride 96 mmol/L (98-107); Estimated Glomerular Filt Rate > 60 mL/min (>60); Glucose 127 mg/dL (70-100); HEMOLYSIS < 15 (0-50); Potassium 4.1 mmol/L (3.4-5.1); Sodium 125 mmol/L (137-145)
[2022-11-03 17:51] LABS: Procalcitonin 6.86 ng/mL (<0.5)
[2022-11-03] MEDS: LORazepam 0.5 MG TABLET PO (18:35)
[2022-11-03] MEDS: KETOROLAC 30 MG/ML VIAL IV (18:36)
--- NOTE | 2022-11-03 19:26 | PC.NURSE ---
Elevated temp: Pt has had elevated temp all afternoon. Has a headache, a freq dry cough. MD made aware x2, first for temp and then temps resistance to coming down and pt's anxiety. Order to pack pt is ice and this was done, he has packs on axilla, groin, back of neck, forehead and they have been in place since about 1529. At 1930 temp was rechecked and pt was 99.0. He reports he is feeling a little better. MD and pt both made aware of blood situation, he has certain antibodies which must be worked up. His blood will not be available for as long as several days although lab reports they maybe able to get it in 24 hours.
[2022-11-04] VITALS (18 sets, daily range): BP systolic 114–154; BP diastolic 63–86; PULSE 81–103; RESP 18–28; TEMP 36.3–38.4; O2SAT 90–100
[2022-11-04] MEDS: VANCOMYCIN 1,250 MG/250 ML PIGGYBACK 250 MG IV (00:20)
[2022-11-04] MEDS: KETOROLAC 30 MG/ML VIAL IV ×3 (00:21→22:16)
[2022-11-04] MEDS: ACETAMINOPHEN 325 MG TABLET 650 MG PO ×4 (00:21→22:19)
[2022-11-04] MEDS: BENZOCAINE/MENTHOL 1 LOZ PKT 1 EACH PO ×2 (00:29→06:04)
[2022-11-04] MEDS: LORazepam 0.5 MG TABLET PO ×3 (00:38→19:03)
[2022-11-04 06:19] LABS: Hemoglobin 7.4 g/dL (13.5-17.5); Mean Corpuscular HGB Conc 33.6 % (30-36); Mean Corpuscular Hemoglobin 32.2 PG (26-34); Mean Corpuscular Volume 95.6 fL (80-100); Red Blood Cell Count 2.29 X10^6/uL (4.5-5.9); Red Cell Distribution Width 16.4 % (11.6-14.8)
[2022-11-04 06:20] LABS: Add Manual Diff / Slide Review YES; Hematocrit 21.9 % (41-53)
[2022-11-04 06:21] LABS: Platelet Count 112 X10^3/uL (150-400)
[2022-11-04 06:27] LABS: White Blood Cell Count 151.6 X10^3/uL (4.5-11.0)
[2022-11-04 06:47] LABS: Haptoglobin 400 mg/dL (23-355)
[2022-11-04 06:47] LABS: IGA 47 mg/dL (90-386); IGG 1605 mg/dL (603-1613); IGM 13 mg/dL (20-172)
[2022-11-04 06:54] LABS: Alanine Aminotransferase 20 IU/L (<50); Albumin 2.9 g/dL (3.5-5.0); Albumin Globulin Ratio 0.8 (1.0-2.8); Alkaline Phosphatase 36 U/L (38-126); Aspartate Aminotransferase 34 IU/L (17-59); BUN Creatinine Ratio 20.5 (6-22); Bilirubin Total 1.5 mg/dL (0.2-1.3); Blood Urea Nitrogen 25 mg/dL (9-20); Calcium 7.8 mg/dL (8.4-10.2); Carbon Dioxide 24 mmol/L (22-32); Chloride 101 mmol/L (98-107); Estimated Glomerular Filt Rate > 60 mL/min (>60); Globulin 3.5 g/dL (1.7-4.1); Glucose 100 mg/dL (70-100); HEMOLYSIS < 15 (0-50); Potassium 3.5 mmol/L (3.4-5.1); Sodium 131 mmol/L (137-145); Total Protein 6.4 g/dL (6.3-8.2)
[2022-11-04 06:55] LABS: Phosphorous 3.2 mg/dL (2.5-4.5)
[2022-11-04 07:05] LABS: Neutrophils Absolute Manual 3032 /uL (3000-5900); Total Cells Counted 100
[2022-11-04 07:06] LABS: Anisocytosis 1+
[2022-11-04] MEDS: AZITHROMYCIN 250 MG TABLET 500 MG PO (09:50)
[2022-11-04] MEDS: POTASSIUM CHLORIDE 20 MEQ TAB 40 MEQ PO (09:53)
[2022-11-04] MEDS: CODEINE/GUAIFENESIN LIQUID 5ML UDC 10 ML PO ×3 (09:53→22:17)
[2022-11-04] MEDS: CEFEPIME 2 GM in SODIUM CHLORIDE 0.9% 100 ML IV ×2 (09:56→21:24)
[2022-11-04] MEDS: ENOXAPARIN 40 MG/0.4 ML SYRINGE SUBCUT (13:05)
--- NOTE | 2022-11-04 14:17 | P.PN_ITS ---
Subjective Subjective Date Patient Seen: 11/04/22 Interval history: 47 yo with new dx likely CLL, adm with fever, diarrhea, sepsis, E.coli gastroenteritis and pneumonia. Has dry cough. Diarrhea improving. Today Hb 7.4. Exam Vital Signs (past 8 hours): - 11/04/22 09:43 11/04/22 08:00 11/04/22 08:00 Temperature 98.3 F 98.3 F 98.7 F Pulse Rate 87 Respiratory Rate 28 H Blood Pressure 114/64 Pulse Oximetry 90 L Oxygen Delivery Method 11/04/22 09:00 11/04/22 12:00 11/04/22 13:26 Temperature 98.9 F Pulse Rate 95 H Respiratory Rate Blood Pressure 125/75 Pulse Oximetry 98 93 100 Oxygen Delivery Method Room Air Room Air 11/04/22 13:29 11/04/22 13:31 11/04/22 13:48 Temperature 99.9 F H 99.9 F H 100.1 F H Pulse Rate 85 93 H Respiratory Rate 18 18 Blood Pressure 136/63 147/70 H Pulse Oximetry Oxygen Delivery Method Oxygen Delivery Method Room Air Oxygen Flow Rate 0 Objective Labs 11/04/22 05:00 11/04/22 05:00 Labs: Laboratory Results - last 24 hr 11/03/22 11/03/22 11/03/22 00:15 07:03 14:02 WBC 169.6 H* RBC 2.44 L Hgb 7.8 L Hct 26.1 L MCV 95.9 MCH 32.1 MCHC 33.4 RDW 16.6 H Plt Count 122 L Neut % (Auto) Lymph % (Auto) [place] % (Auto) Eos % (Auto) Baso % (Auto) Lymph # (Auto) [place] # (Auto) Baso # (Auto) Total Counted Seg Neutrophils % Lymphocytes % (Manual) Monocytes % (Manual) Neutrophils # (Manual) RBC Morphology Anisocytosis Haptoglobin 400 H Sodium Potassium Chloride Carbon Dioxide BUN Creatinine Estimated GFR BUN/Creatinine Ratio Glucose Calcium Phosphorus Total Bilirubin AST ALT Alkaline Phosphatase Total Protein Albumin Globulin Albumin/Globulin Ratio Procalcitonin Nasal Screen MRSA (PCR) IgG 1605 IgA 47 L IgM 13 L Blood Type Antibody Screen Antibody Identification RAUL Interpretation Crossmatch 11/03/22 11/03/22 11/03/22 14:20 15:25 15:25 WBC RBC Hgb Hct MCV MCH MCHC RDW Plt Count Neut % (Auto) Lymph % (Auto) [place] % (Auto) Eos % (Auto) Baso % (Auto) Lymph # (Auto) [place] # (Auto) Baso # (Auto) Total Counted Seg Neutrophils % Lymphocytes % (Manual) Monocytes % (Manual) Neutrophils # (Manual) RBC Morphology Anisocytosis Haptoglobin Sodium 125 L Potassium 4.1 Chloride 96 L Carbon Dioxide 22 BUN 24 H Creatinine 1.27 H Estimated GFR > 60 BUN/Creatinine Ratio 18.9 Glucose 127 H Calcium 7.6 L Phosphorus Total Bilirubin AST ALT Alkaline Phosphatase Total Protein Albumin Globulin Albumin/Globulin Ratio Procalcitonin 6.86 H Nasal Screen MRSA (PCR) Not detected IgG IgA IgM Blood Type A Positive Antibody Screen Positive Antibody Identification Warm Auto Antibody RAUL Interpretation Crossmatch See Detail 11/03/22 11/04/22 11/04/22 15:25 05:00 05:00 WBC 151.6 H* RBC 2.29 L Hgb 7.4 L Hct 21.9 L MCV 95.6 MCH 32.2 MCHC 33.6 RDW 16.4 H Plt Count 112 L Neut % (Auto) Not Reportable Lymph % (Auto) Not Reportable [place] % (Auto) Not Reportable Eos % (Auto) Not Reportable Baso % (Auto) Not Reportable Lymph # (Auto) Not Reportable [place] # (Auto) Not Reportable Baso # (Auto) Not Reportable Total Counted 100 Seg Neutrophils % 2.0 L Lymphocytes % (Manual) 96.0 H Monocytes % (Manual) 2.0 Neutrophils # (Manual) 3032 RBC Morphology Not Reportable Anisocytosis 1+ H Haptoglobin Sodium 131 L Potassium 3.5 Chloride 101 Carbon Dioxide 24 BUN 25 H Creatinine 1.22 Estimated GFR > 60 BUN/Creatinine Ratio 20.5 Glucose 100 Calcium 7.8 L Phosphorus Total Bilirubin 1.5 H AST 34 ALT 20 Alkaline Phosphatase 36 L Total Protein 6.4 Albumin 2.9 L Globulin 3.5 Albumin/Globulin Ratio 0.8 L Procalcitonin Nasal Screen MRSA (PCR) IgG IgA IgM Blood Type Antibody Screen Antibody Identification RAUL Interpretation Positive Crossmatch 11/04/22 05:00 WBC RBC Hgb Hct MCV MCH MCHC RDW Plt Count Neut % (Auto) Lymph % (Auto) [place] % (Auto) Eos % (Auto) Baso % (Auto) Lymph # (Auto) [place] # (Auto) Baso # (Auto) Total Counted Seg Neutrophils % Lymphocytes % (Manual) Monocytes % (Manual) Neutrophils # (Manual) RBC Morphology Anisocytosis Haptoglobin Sodium Potassium Chloride Carbon Dioxide BUN Creatinine Estimated GFR BUN/Creatinine Ratio Glucose Calcium Phosphorus 3.2 Total Bilirubin AST ALT Alkaline Phosphatase Total Protein Albumin Globulin Albumin/Globulin Ratio Procalcitonin Nasal Screen MRSA (PCR) IgG IgA IgM Blood Type Antibody Screen Antibody Identification RAUL Interpretation Crossmatch [facility] Social History household members: significant other Smoking Status: Never smoker Assessment & Plan Assessment & Plan narrative: 1. Sepsis with acute organ dysfunction, secondary to E. coli gastroenteritis, bacterial pneumonia -patient presented with tachycardia, tachypnea, fevers, toxic granulation noted on CBC -has organ dysfunction with elevated creatinine -etiology is e. coli diarrhea with eaec, etec, epec noted -additional etiology is RLL pneumonia noted on CXR -patient denies bloody stool -while he does have anemia and jignesh, and is possibly cause by hus, more likely related to sepsis and malignancy -additionally most common cause of hus is ehec and stool negative for shiga toxin and o157 which are most likely cause of hus -cont cefepime, azithromycin (neg MRSA scr, stopped Vanc) -blood and urine cx NGTD -codeine/guaf prn cough 2. Probable CLL -presenting with WBC >200k, declining s/w with abx treatment -differential shows lymphocytes and smudge cells, consistent with CLL -infections are likely in setting of depressed immune system -fish, immunoglobins sent -will need urgent oncology referral upon discharge as likely has active disease and would be a candidate for treatment 3. Anemia, likely acute on chronic, -initial hemoglobin quite low in 9s, MCV normal, worsening H/H -could be secondary to malignancy vs TMA syndrome, possibly enlarged spleen -elev unconjugated bili, possibly secondary to hemolysis, however ldh and retic are normal -haptoglobin pending -B12 nl, iron profile c/w iron def (% sat 10) -blood smear sent -blood bank: warm antibody highly positive, RAUL highly + Anti-IgG, + anti-C3 -11/04 transfused 1 unit least incompatible PRBC, check H/H 1 h post transfusion -a second unit least incompatible PRBC is available if needed 4. Thrombocytopenia -etiology may be secondary to infection vs malignancy -trend daily -no indication for transfusion currently 5. JIGNESH, resolved -suspect secondary to hypovolemia from GI losses and possibly from infection -however patient does have E. coli infection and also notably anemia, and thrombocytopenia -has occult blood in urine -other consideration is possible HUS, or another disease in TMA syndrome -blood smear pending, sent to [facility] for schistocytes -trend creatinine 6. Hyponatremia, improving -suspect hypovolemic secondary to GI losses -d/c'd IVF 7. Coagulopathy -PT elevated, with initial PTT normal -etiology unclear -however given sepsis would have some concern for DIC -no evidence of bleeding or thrombosis -elev fibrinogen and d-dimer -already sent blood smear as above -treat sepsis as above and treat cell line abnormalities as above
[2022-11-04 14:26] LABS: Acinetobacter calcoa-baumannii Not Detected (Not Detect); Bacteroides fragilis Not Detected (Not Detect); Enterobacter cloacae complex Not Detected (Not Detect); Enterobacterales Not Detected (Not Detect); Enterococcus faecalis Not Detected (Not Detect); Enterococcus faecium Not Detected (Not Detect); Klebsiella aerogenes Not Detected (Not Detect); Listeria monocytogenes Not Detected (Not Detect); Staphylococcus epidermidis Not Detected (Not Detect); Staphylococcus lugdunensis Not Detected (Not Detect); Staphylococcus species Not Detected (Not Detect); Streptococcus agalactiae (Gr B Not Detected (Not Detect); Streptococcus pneumonia Not Detected (Not Detect); Streptococcus pyogenes (Gr A) Not Detected (Not Detect); Streptococcus species Not Detected (Not Detect)
[2022-11-04 14:27] LABS: Candida albicans Not Detected (Not Detect); Candida auris Not Detected (Not Detect); Candida glabrata Not Detected (Not Detect); Candida krusei Not Detected (Not Detect); Candida parapsilosis Not Detected (Not Detect); Candida tropicalis Not Detected (Not Detect); Cryptococcus neoformans/gatti Not Detected (Not Detect); Haemophilus influenzae Not Detected (Not Detect); Neisseria meningitidis Not Detected (Not Detect); Proteus species Not Detected (Not Detect); Pseudomonas aeruginosa Not Detected (Not Detect); Salmonella species Not Detected (Not Detect); Serratia marcescens Not Detected (Not Detect); Stenotrophomonas maltophilia Not Detected (Not Detect)
[2022-11-04 18:11] LABS: Hematocrit 26.3 % (41-53); Hemoglobin 8.8 g/dL (13.5-17.5)
[2022-11-05] VITALS (13 sets, daily range): BP systolic 104–158; BP diastolic 60–88; PULSE 65–107; RESP 16–25; TEMP 36.9–38.9; O2SAT 92–96
[2022-11-05] MEDS: KETOROLAC 30 MG/ML VIAL IV ×3 (05:07→18:39)
[2022-11-05] MEDS: ACETAMINOPHEN 325 MG TABLET 650 MG PO ×3 (05:08→23:40)
[2022-11-05] MEDS: LORazepam 0.5 MG TABLET PO (05:08)
[2022-11-05] MEDS: CODEINE/GUAIFENESIN LIQUID 5ML UDC 10 ML PO ×2 (05:08→21:21)
[2022-11-05 05:23] LABS: Hematocrit 27.5 % (41-53); Hemoglobin 8.3 g/dL (13.5-17.5); Mean Corpuscular HGB Conc 30.2 % (30-36); Mean Corpuscular Hemoglobin 30.1 PG (26-34); Mean Corpuscular Volume 99.6 fL (80-100); Platelet Count 135 X10^3/uL (150-400); Red Blood Cell Count 2.76 X10^6/uL (4.5-5.9); Red Cell Distribution Width 17.8 % (11.6-14.8)
[2022-11-05 05:26] LABS: Add Manual Diff / Slide Review YES
[2022-11-05 05:27] LABS: White Blood Cell Count 186.6 X10^3/uL (4.5-11.0)
[2022-11-05 05:31] LABS: Alanine Aminotransferase 25 IU/L (<50); Albumin Globulin Ratio 0.9 (1.0-2.8); Alkaline Phosphatase 40 U/L (38-126); Aspartate Aminotransferase 54 IU/L (17-59); BUN Creatinine Ratio 22.2 (6-22); Bilirubin Total 2.4 mg/dL (0.2-1.3); Blood Urea Nitrogen 26 mg/dL (9-20); Calcium 7.8 mg/dL (8.4-10.2); Carbon Dioxide 22 mmol/L (22-32); Chloride 99 mmol/L (98-107); Estimated Glomerular Filt Rate > 60 mL/min (>60); Globulin 3.5 g/dL (1.7-4.1); Glucose 102 mg/dL (70-100); HEMOLYSIS < 15 (0-50); Potassium 4.7 mmol/L (3.4-5.1); Sodium 128 mmol/L (137-145); Total Protein 6.5 g/dL (6.3-8.2)
[2022-11-05 05:58] LABS: Neutrophils Absolute Manual 3732 /uL (3000-5900); Total Cells Counted 100; Toxic Granulation Present
[2022-11-05 05:59] LABS: Smudge Cells 2+
[2022-11-05 06:00] LABS: Anisocytosis 1+
[2022-11-05] MEDS: CEFEPIME 2 GM in SODIUM CHLORIDE 0.9% 100 ML IV ×2 (08:25→18:00)
[2022-11-05] MEDS: AZITHROMYCIN 250 MG TABLET 500 MG PO (08:25)
[2022-11-05] MEDS: ENOXAPARIN 40 MG/0.4 ML SYRINGE SUBCUT (08:25)
--- NOTE | 2022-11-05 16:07 | PM.PN.1 ---
Subjective Subjective Interval history: He is starting to feel better today. Improved weakness and shortness of breath. Diarrhea is also slowly improving. Exam Vital Signs (past 8 hours): - 11/05/22 09:21 11/05/22 09:00 11/05/22 13:00 Temperature Pulse Rate Respiratory Rate Blood Pressure Pulse Oximetry 96 92 Oxygen Delivery Method Nasal Cannula Oximask Room Air Oxygen Flow Rate 2 2 Fraction of Inspired Oxygen 28 11/05/22 15:51 Temperature 98.4 F Pulse Rate 88 Respiratory Rate 18 Blood Pressure 126/82 Pulse Oximetry 94 Oxygen Delivery Method Oxygen Flow Rate Fraction of Inspired Oxygen Fraction of Inspired Oxygen 28 Oxygen Delivery Method Room Air Oxygen Flow Rate 2 Narrative Exam Narrative: GEN: no acute distress HEENT: moist mucous membranes, PERRL NECK: trachea midline, no jvd PULM: clear bilaterally, no wheezes, rhonchi, rales CV: regular rate and rhythm, no murmurs ABD: soft, nontender, nondistended, no organomegaly EXT: warm and well perfused with no edema SKIN: no rashes, petechia noted NEURO: awake, alert, oriented, no focal deficits Objective Labs 11/05/22 05:00 11/05/22 05:00 Labs: Laboratory Results - last 24 hr 11/03/22 11/04/22 11/05/22 07:03 17:40 05:00 WBC RBC Hgb 8.8 L Hct 26.3 L MCV MCH MCHC RDW Plt Count Neut % (Auto) Lymph % (Auto) Morrison % (Auto) Eos % (Auto) Baso % (Auto) Lymph # (Auto) Morrison # (Auto) Baso # (Auto) Total Counted Seg Neutrophils % Lymphocytes % (Manual) Neutrophils # (Manual) Smudge Cells Toxic Granulation RBC Morphology Anisocytosis Sodium 128 L Potassium 4.7 D Chloride 99 Carbon Dioxide 22 BUN 26 H Creatinine 1.17 Estimated GFR > 60 BUN/Creatinine Ratio 22.2 H Glucose 102 H Calcium 7.8 L Total Bilirubin 2.4 H AST 54 ALT 25 Alkaline Phosphatase 40 Total Protein 6.5 Albumin 3.0 L Globulin 3.5 Albumin/Globulin Ratio 0.9 L Leuk/Lym Sample Descrip Comment Leuk/Lym Comment Comment L/L Sign Pathologist Comment CLL Flow Interpret Comment Leuk/Lymph Case # TNP Leuk/Lymph Ind for Study Comment Leuk/Lymph Flow Com Comment CLL (FISH) Add Info TNP 11/05/22 05:00 WBC 186.6 H* RBC 2.76 L Hgb 8.3 L Hct 27.5 L MCV 99.6 D MCH 30.1 MCHC 30.2 D RDW 17.8 H Plt Count 135 L Neut % (Auto) Not Reportable Lymph % (Auto) Not Reportable Morrison % (Auto) Not Reportable Eos % (Auto) Not Reportable Baso % (Auto) Not Reportable Lymph # (Auto) Not Reportable Morrison # (Auto) Not Reportable Baso # (Auto) Not Reportable Total Counted 100 Seg Neutrophils % 2.0 L Lymphocytes % (Manual) 98.0 H Neutrophils # (Manual) 3732 Smudge Cells 2+ H Toxic Granulation Present H RBC Morphology See below Anisocytosis 1+ H Sodium Potassium Chloride Carbon Dioxide BUN Creatinine Estimated GFR BUN/Creatinine Ratio Glucose Calcium Total Bilirubin AST ALT Alkaline Phosphatase Total Protein Albumin Globulin Albumin/Globulin Ratio Leuk/Lym Sample Descrip Leuk/Lym Comment L/L Sign Pathologist CLL Flow Interpret Leuk/Lymph Case # Leuk/Lymph Ind for Study Leuk/Lymph Flow Com CLL (FISH) Add Info [facility] Social History household members: significant other Smoking Status: Never smoker Assessment & Plan Assessment & Plan narrative: 1. Sepsis with acute organ dysfunction, secondary to E. coli gastroenteritis, bacterial pneumonia -patient presented with tachycardia, tachypnea, fevers, toxic granulation noted on CBC -has organ dysfunction with elevated creatinine -etiology is e. coli diarrhea with eaec, etec, epec noted -additional etiology is RLL pneumonia noted on CXR -patient denies bloody stool -while he does have anemia and jignesh, HUS is unlikely, more likely sepsis with dehydration and anemia related to likely lymphoma. -additionally most common cause of hus is ehec and stool negative for shiga toxin and o157 which are most likely cause of hus -cont cefepime, azithromycin (neg MRSA scr, stopped Vanc) -blood and urine cx NGTD -codeine/guaf prn cough 2. Probable CLL -presenting with WBC >200k, declining s/w with abx treatment -differential shows lymphocytes and smudge cells, consistent with CLL -infections are likely in setting of depressed immune system -fish, immunoglobins sent -will need urgent oncology referral upon discharge as likely has active disease and would be a candidate for treatment 3. Anemia, likely acute on chronic, -initial hemoglobin quite low in 9s, MCV normal, worsening H/H -could be secondary to malignancy vs TMA syndrome, possibly enlarged spleen -elev unconjugated bili, possibly secondary to hemolysis, however ldh and retic are normal -haptoglobin pending -B12 nl, iron profile c/w iron def (% sat 10) -blood smear sent -blood bank: warm antibody highly positive, RAUL highly + Anti-IgG, + anti-C3 -11/04 transfused 1 unit least incompatible PRBC, check H/H 1 h post transfusion -a second unit least incompatible PRBC is available if needed 4. Thrombocytopenia -etiology may be secondary to infection vs malignancy -trend daily -no indication for transfusion currently 5. JIGNESH, resolved -suspect secondary to hypovolemia from GI losses and possibly from infection -however patient does have E. coli infection and also notably anemia, and thrombocytopenia -has occult blood in urine -other consideration is possible HUS, or another disease in TMA syndrome -blood smear pending, sent to eval for schistocytes -trend creatinine 6. Hyponatremia, improving -suspect hypovolemic secondary to GI losses -d/c'd IVF 7. Coagulopathy -PT elevated, with initial PTT normal -etiology unclear -however given sepsis would have some concern for DIC -no evidence of bleeding or thrombosis -elev fibrinogen and d-dimer -already sent blood smear as above -treat sepsis as above and treat cell line abnormalities as above 8. Hyponatremia - likely hypovolemic from diarrhea. Dispo: probable discharge home in 1-2 days, depending on h/h trend, fever, etc with outpatient hematology/oncology appointment.
[2022-11-05] MEDS: TRAZODONE 50 MG TABLET PO (21:21)
[2022-11-05] MEDS: MELATONIN 3 MG TABLET 6 MG PO (21:21)
[2022-11-05] MEDS: BENZONATATE 100 MG CAPSULE PO (23:40)
[2022-11-06] VITALS (17 sets, daily range): BP systolic 125–153; BP diastolic 74–89; PULSE 87–115; RESP 18–22; TEMP 36.3–38.2; O2SAT 91–96
[2022-11-06] MEDS: KETOROLAC 30 MG/ML VIAL IV ×2 (00:33→06:39)
[2022-11-06] MEDS: BENZONATATE 100 MG CAPSULE PO ×2 (06:39→10:17)
--- NOTE | 2022-11-06 07:00 | DI.RAD.S_ITS ---
PROCEDURE: XR CHEST 1V INDICATIONS: abnormal ekg TECHNIQUE: One view of the chest was acquired. COMPARISON: [facility], CT, CT ANGIO CHEST PE PROTOCOL, 11/06/2022, 9:53. [facility], CR, XR CHEST 1V, 11/03/2022, 0:35. FINDINGS: Surgical changes and devices: None. Lungs and pleura: Dense right lower lobe pulmonary consolidation. Left lung and pleural spaces are clear Mediastinum: Mediastinal contours appear normal. Heart size is normal. Bones and chest wall: No suspicious bony lesions. Overlying soft tissues appear unremarkable. IMPRESSION: Dense right lower lobe pulmonary consolidation, better depicted on concurrent CT Approved by: Erik Marie M.D. on 11/06/2022 at 13:02
--- NOTE | 2022-11-06 07:24 | DI.ECHO.S_ITS ---
[place]---------+ [facility] +---------+ : : [address] [place] : : : : [id number] : : : : Phone: [phone]+ Echocardiogram Report + + :Name: PHOEBE OCHOA Study Date: 11/06/2022 Height: 70 in : :[facility] ReadingLocation: Weight: 189 lb : : Gender: Male BSA: 2.0 m2 : :: 1975 Age: 47 yrs BP: 125/74 mmHg: :Reason For Study: SHORTNESS OF BREATH : :Ordering Physician: ATTILA, : :MYLES GUEVARA Performed By: Paty Siddiqui : :Referring: MYLES AIKEN : + + Interpretation Summary Sinus tach with HR 95-113 bpm. Mildly dilated LV; normal LV wall thickness. Normal wall motion and LV systolic function. EF is 50-55%. Mild LA enlargement. Otherwise normal chamber sizes. No significant valvular abnormalities. PA systolic pressure is 35 mm Hg assuming RA pressure of 3 mm Hg. No prior study available for comparison. Procedure: A two-dimensional transthoracic echocardiogram with color flow and Doppler was performed. There is no prior echocardiogram noted for this patient. The study quality was technically good. The patient was in sinus tachycardia with heart rates between 95-113 bpm during the exam. Left Ventricle: The left ventricle is mildly dilated. There is normal left ventricular wall thickness. The ejection fraction is estimated to be 50-55%. Right Ventricle: The right ventricle is grossly normal size. The right ventricular systolic function is normal. Atria: The left atrium is mildly dilated. Right atrial size is normal. There is no Doppler evidence for an interatrial shunt. Mitral Valve: The mitral valve is normal in structure and function. There is mild mitral regurgitation. Aortic Valve: The aortic valve is trileaflet. The aortic valve opens well. There is no aortic valve stenosis. There is trace aortic regurgitation. Tricuspid Valve: The tricuspid valve is normal in structure and function. There is mild tricuspid regurgitation. The right ventricular systolic pressure is estimated to be at least 35 mmHg based on an estimated right atrial pressure of 3 mm Hg. Pulmonic Valve: The pulmonic valve leaflets are thin and pliable; valve motion is normal. There is mild pulmonic regurgitation. Great Vessels: The aortic root is normal size. The dimensions of the ascending aorta are normal. The IVC is of normal diameter and collapses greater than 50% with a sniff. This suggests a low right atrial pressure of 3 mm Hg. Pericardium/ Pleura There is a trace loculated pericardial effusion. There is no pleural effusion. MMode/2D Measurements & Calculations LVIDd: 6.4 cm LVOT diam: 2.1 cm LVIDs: 4.6 cm Ao root diam: 3.9 cm FS: 29.1 % asc Aorta Diam: 3.3 cm EPSS: 1.3 cm Ao Arch Diam (Prox Trans): 2.7 cm IVSd: 0.67 cm LVPWd: 0.78 cm LV mackey. diameter/BSA (cm/m^2): 3.2 LV sys. diameter/BSA (cm/m^2): 2.2 LA A2 area: 22.2 cm2 RA long axis: 5.4 cm LA A4 area: 19.9 cm2 RA area: 19.0 cm2 LA length (vol): 4.8 cm RA vol: 56.8 ml LA vol: 77.8 ml RA : 27.9 ml/m2 LA vol index: 38.2 ml/m2 IVC diam: 1.4 cm TAPSE: 2.5 cm Doppler Measurements & Calculations Ao V2 max: 199.6 cm/sec LVOT Max Unruly: 130.7 cm/sec Ao V2 mean: 137.9 cm/sec LV V1 max P.8 mmHg Ao max P.9 mmHg LV V1 VTI: 21.3 cm Ao mean P.4 mmHg KATHERINE(I,D): 2.4 cm2 Ao V2 VTI: 31.1 cm KATHERINE(V,D): 2.3 cm2 sev ratio: 0.68 KATHERINE indexed to BSA (cm^2/m^2): 1.2 MV E max unruly: 119.5 cm/sec TR max unruly: 282.5 cm/sec MV A max unruly: 114.4 cm/sec TR max P.9 mmHg MV E/A: 1.0 PA V2 max: 144.1 cm/sec Med Peak E' Unruly: 7.5 cm/sec PA V2 mean: 90.5 cm/sec E/E' med: 15.8 PA mean P.9 mmHg Lat Peak E' Unruly: 13.4 cm/sec PA pr(Accel): 36.6 mmHg E/E' lat: 9.0 E/e' average: 12.4 MV dec time: 0.22 sec SVLVOT): 74.7 ml Electronically signed by: Narcisa Whalen M.D. on [employer] Physician:11/06/2022 04:00 PM
--- NOTE | 2022-11-06 07:37 | DI.CT.S_ITS ---
PROCEDURE: CT ANGIO CHEST PE PROTOCOL INDICATIONS: hypoxia, r/o PE, recent dx CLL ? pulm involvement TECHNIQUE: After the administration of intravenous contrast, 2 mm thick sections acquired from the pulmonary apices to the posterior costophrenic angles. 3-dimensional maximum intensity projection (MIP) coronal and sagittal reformats were then acquired through the thorax. For radiation dose reduction, the following was used: automated exposure control, adjustment of mA and/or kV according to patient size. COMPARISON: None. FINDINGS: Image quality: Excellent. Pulmonary arteries: Pulmonary arteries are normal in size, and demonstrate no intraluminal filling defects to suggest central pulmonary embolism. Lungs and pleura: Right lower lobe pneumonia. Dependent left lung ground-glass and diffuse mosaic attenuation. Small right pleural effusion. Mediastinum: Heart is mildly enlarged. Trace pericardial effusion. Enlarged mediastinal lymph nodes. Examples include (short axis diameter reported) -1.9 centimeter subcarinal node (series 4, image 65). -1.1 centimeter left upper paratracheal node (series 4, image 44). Bones and chest wall: Prominent axillary lymph nodes. Prominent supraclavicular lymph nodes. Abdomen: Splenomegaly. IMPRESSION: Right lower lobe pneumonia versus pneumonitis. A dependent ground-glass in the right upper lobe and left lung, possibly indicating superimposed aspiration or developing infection. Mediastinal adenopathy and prominent axillary and supraclavicular lymph nodes, likely lymphoma. Dictated by: Jeremías Landaverde M.D. on 11/06/2022 at 10:16 Approved by: Jeremías Landaverde M.D. on 11/06/2022 at 10:19
[2022-11-06] MEDS: cefTRIAXone 1,000 MG in SODIUM CHLORIDE 0.9% 100 ML 200 MG IV (08:54)
[2022-11-06] MEDS: AZITHROMYCIN 250 MG TABLET 500 MG PO (08:58)
[2022-11-06] MEDS: ENOXAPARIN 40 MG/0.4 ML SYRINGE SUBCUT (08:59)
[2022-11-06 09:29] LABS: Hematocrit 23.1 % (41-53); Hemoglobin 7.2 g/dL (13.5-17.5); Mean Corpuscular HGB Conc 31.3 % (30-36); Mean Corpuscular Hemoglobin 30.7 PG (26-34); Mean Corpuscular Volume 98.1 fL (80-100); Platelet Count 118 X10^3/uL (150-400); Red Blood Cell Count 2.36 X10^6/uL (4.5-5.9); Red Cell Distribution Width 17.6 % (11.6-14.8)
[2022-11-06 09:45] LABS: Alanine Aminotransferase 32 IU/L (<50); Albumin 2.6 g/dL (3.5-5.0); Albumin Globulin Ratio 0.7 (1.0-2.8); Alkaline Phosphatase 49 U/L (38-126); Aspartate Aminotransferase 65 IU/L (17-59); BUN Creatinine Ratio 26.5 (6-22); Bilirubin Total 1.4 mg/dL (0.2-1.3); Blood Urea Nitrogen 27 mg/dL (9-20); Calcium 7.6 mg/dL (8.4-10.2); Carbon Dioxide 20 mmol/L (22-32); Chloride 101 mmol/L (98-107); Estimated Glomerular Filt Rate > 60 mL/min (>60); Globulin 3.5 g/dL (1.7-4.1); Glucose 128 mg/dL (70-100); HEMOLYSIS < 15 (0-50); Potassium 4.2 mmol/L (3.4-5.1); Sodium 131 mmol/L (137-145); Total Protein 6.1 g/dL (6.3-8.2)
[2022-11-06 09:55] LABS: NT-proBNP (BNP-Adult 18+) 582 pg/mL (<125)
[2022-11-06 10:05] LABS: Add Manual Diff / Slide Review YES; White Blood Cell Count 129.3 X10^3/uL (4.5-11.0)
[2022-11-06 10:10] LABS: Neutrophils Absolute Manual 3879 /uL (3000-5900); Total Cells Counted 100
[2022-11-06 10:15] LABS: Hypochromasia 1+; Smudge Cells 3+
[2022-11-06] MEDS: FUROSEMIDE 20 MG/2 ML VIAL IV (10:20)
[2022-11-06] MEDS: ACETAMINOPHEN 325 MG TABLET 650 MG PO ×2 (12:24→18:23)
--- NOTE | 2022-11-06 13:04 | CM.DPNOTE ---
DCP Note According to DR Roberts's report in multidisciplinary rounds this morning, patient remains hypoxic and anemic and may be considered for transfer r/t patient's confirmed CLL Patient having imaging and further w/u today CM team following closely in case any assist needed for support or DCP coordination JW
--- NOTE | 2022-11-06 14:53 | P.PN_ITS ---
Subjective Subjective Interval history: Patient feels similar today. Overnight febilre to 102. He was hypoxic to mid 80s on room air, very much positionally dependent but typically requiring 1-4 L O2 via NC. Hg fell to 7.2 today, getting another transfusion, hemolysis labs sent. ProBNP 582, echo ordered. Given continued hypoxia, CTA performed which showed persistent / slight increase in RLL consolidation, with lymphadenopathy, mild pericardial effusion. He has been accepted for transfer at 3 hospitals today, flow cytometry results consistent with CLL per report. With worsening anemia, he may need bone marrow biopsy to confirm diagnosis, may need inpatient treatment given continued delince in h/h, not available at [facility]. He may also need bronchoscopy to more definitively determine etiology of his lung consolidation given lack of improvement thus far with antibiotic therapies. Trial of lasix was ordered today to see if improvement in hypoxia. Exam Vital Signs (past 8 hours): - 11/06/22 09:19 11/06/22 09:00 11/06/22 12:02 Temperature 99.1 F Pulse Rate 97 H 101 H Respiratory Rate 18 Blood Pressure 131/79 145/82 H Pulse Oximetry 91 95 Oxygen Delivery Method Nasal Cannula Oxygen Flow Rate 0 2 11/06/22 12:05 11/06/22 12:20 11/06/22 12:50 Temperature 99.1 F 98.8 F 99.8 F H Pulse Rate 101 H 105 H 95 H Respiratory Rate 18 22 18 Blood Pressure 145/82 H 147/88 H 153/89 H Pulse Oximetry 94 Oxygen Delivery Method Oxygen Flow Rate 2 11/06/22 13:00 11/06/22 14:47 Temperature 97.4 F L Pulse Rate 87 Respiratory Rate 20 Blood Pressure 132/81 Pulse Oximetry 95 Oxygen Delivery Method Nasal Cannula Oxygen Flow Rate 2 Fraction of Inspired Oxygen 28 Oxygen Delivery Method Nasal Cannula Oxygen Flow Rate 2 Narrative Exam Narrative: GEN: no acute distress HEENT: moist mucous membranes, PERRL NECK: trachea midline, no jvd PULM: clear bilaterally, no wheezes, rhonchi, rales CV: regular rate and rhythm, no murmurs ABD: soft, nontender, nondistended, no organomegaly EXT: warm and well perfused with no edema SKIN: no rashes, petechia noted NEURO: awake, alert, oriented, no focal deficits Objective Labs 11/06/22 09:15 11/06/22 09:15 Labs: Laboratory Results - last 24 hr 11/03/22 11/03/22 11/06/22 07:03 15:25 09:15 WBC 129.3 H* RBC 2.36 L Hgb 7.2 L Hct 23.1 L MCV 98.1 MCH 30.7 MCHC 31.3 RDW 17.6 H Plt Count 118 L Neut % (Auto) Not Reportable Lymph % (Auto) Not Reportable Love % (Auto) Not Reportable Eos % (Auto) Not Reportable Baso % (Auto) Not Reportable Lymph # (Auto) Not Reportable Love # (Auto) Not Reportable Baso # (Auto) Not Reportable Total Counted 100 Seg Neutrophils % 3.0 L Lymphocytes % (Manual) 97.0 H Neutrophils # (Manual) 3879 Smudge Cells 3+ H RBC Morphology See below Hypochromasia 1+ H Sodium Potassium Chloride Carbon Dioxide BUN Creatinine Estimated GFR BUN/Creatinine Ratio Glucose Calcium Total Bilirubin AST ALT Alkaline Phosphatase NT-Pro-B Natriuret Pep Total Protein Albumin Globulin Albumin/Globulin Ratio Leuk/Lym Sample Descrip Comment Leuk/Lym Comment Comment L/L Sign Pathologist Comment CLL Flow Interpret Comment Leuk/Lymph Case # TNP Leuk/Lymph Ind for Study Comment Leuk/Lymph Flow Com Comment CLL (FISH) Add Info TNP Blood Type A Positive Antibody Screen Positive Antibody Identification Warm Auto Antibody Crossmatch See Detail 11/06/22 11/06/22 09:15 09:15 WBC RBC Hgb Hct MCV MCH MCHC RDW Plt Count Neut % (Auto) Lymph % (Auto) Love % (Auto) Eos % (Auto) Baso % (Auto) Lymph # (Auto) Love # (Auto) Baso # (Auto) Total Counted Seg Neutrophils % Lymphocytes % (Manual) Neutrophils # (Manual) Smudge Cells RBC Morphology Hypochromasia Sodium 131 L Potassium 4.2 Chloride 101 Carbon Dioxide 20 L BUN 27 H Creatinine 1.02 Estimated GFR > 60 BUN/Creatinine Ratio 26.5 H Glucose 128 H Calcium 7.6 L Total Bilirubin 1.4 H AST 65 H ALT 32 Alkaline Phosphatase 49 NT-Pro-B Natriuret Pep 582 H Total Protein 6.1 L Albumin 2.6 L Globulin 3.5 Albumin/Globulin Ratio 0.7 L Leuk/Lym Sample Descrip Leuk/Lym Comment L/L Sign Pathologist CLL Flow Interpret Leuk/Lymph Case # Leuk/Lymph Ind for Study Leuk/Lymph Flow Com CLL (FISH) Add Info Blood Type Antibody Screen Antibody Identification Crossmatch [facility] Social History household members: significant other Smoking Status: Never smoker Assessment & Plan Assessment & Plan narrative: 1. Sepsis with acute organ dysfunction, secondary to E. coli gastroenteritis, bacterial pneumonia -Just a week ago per patient he was able to run multiple miles without significant dyspnea. patient presented with tachycardia, tachypnea, fevers, toxic granulation noted on CBC. He recently returned to the after a visit to [place]. He may have had unfiltered water but is not entirely sure. Stool PCR for presenting diarrhea was positive for e. coli with eaec, etec, epec. Diarrhea has improved with antibiotic therapy thus far. -additional etiologies may include RLL pneumonia noted on CXR and CT imaging, though concern for possible, yet less likely CLL lung involvement. He has not had hemoptysis or weight loss. Given lack of response to antibiotics, need consideration of bronchoscopy at higher level facility. CTA performed 11/06 for continued hypoxia was negative for PE. Showed continued consolidation with worsening appearance, also pericardial effusion and lymphadenopathy. Echocardiogram performed which was unremarkable. Lasix attempted without significant change today in symptoms as hypoxia appears positional as well (worst when on L side). -initially on cefepime and vancomycin. Patient developed anxiety with cefepime infusion, requested change, so was changed to levofloxacin. Stopped vancomycin with negative cultures. -blood and urine cx NGTD -codeine/guaf prn cough 2. Probable CLL -presenting with WBC >200k, declining somewhat with abx treatment -differential shows lymphocytes and smudge cells, consistent with CLL, and flow cytometry consistent with CLL -infections are likely in setting of depressed immune system -fish, immunoglobins sent -with continued anemia, 2U PRBC tranfusion in as many days, may need inpatient treatment initiated. May need bone marrow biopsies in discussion with multiple higher level facilities today. 3. Anemia and thrombocytopenia, likely acute on chronic, -initial hemoglobin quite low in 9s, MCV normal, worsening H/H -elev unconjugated bili, possibly secondary to hemolysis, however ldh and retic are normal. will repeat after transfusion today. -haptoglobin unremarkable. -B12 nl, iron profile c/w iron def (% sat 10) -blood bank: warm antibody highly positive, RAUL highly + Anti-IgG, + anti-C3 -11/04 transfused 1 unit least incompatible PRBC with improvement in h/h, however decline again today to Hg 7.2 and will give 2nd unit. 4. Thrombocytopenia -etiology may be secondary to infection vs malignancy -trend daily -no indication for transfusion currently 5. HANNY, resolved -suspect secondary to hypovolemia from GI losses and possibly from infection -however patient does have E. coli infection and also notably anemia, and thrombocytopenia -trend creatinine 6. Hyponatremia, improving -suspect hypovolemic secondary to GI losses -d/c'd IVF 7. Coagulopathy -PT elevated, with initial PTT normal -etiology unclear 8. Hyponatremia - likely hypovolemic from diarrhea. improved today without fluids to 131. Dispo: pending transfer to higher level facility, has been accepted at 3 outside facilities including , , and [facility], pending available bed. Family prefers any hospital in [place]. COVID-19 COVID-19 status: Negative
--- NOTE | 2022-11-06 17:25 | PM.DS.1 ---
History of Present Illness History of Present Illness Date Patient Seen: 11/06/22 Time Patient Seen: 17:25 Chief complaint: Abnormal EKG Narrative: Per admitting provider, Mr. Lundberg is a 47M with PMH HTN who presents to the hospital with diarrhea. He had recent travel to [place]. 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 He developed diarrhea and abdominal cramping 6 days ago on Saturday. He has noted no blood in his stool. He has had 6-8 episodes of diarrhea daily. He feels he has been able to stay hydrated. He has no lightheaded or dizziness. Prior to this illness he has had no issues, no fevers, chills, night sweats, weight loss. He has noted no brashes, bruising, abnormal bleeding. He has noted no fatigue. In the ED workup was done, vitals notable for fever to 101.1, heart rate 110s, blood pressure 140s/70s, sats 93% on room air. Labs reviewed by me and notable for WBC 206.1, hgb 8.9, plts 137. Na 125, BUN 27, creatinine 1.46. Bili 2.5. Procal 6.38. Ua notable for occult blood, nitrates, bilirubin, trace leuk esterase, moderate bacteria. Stool PCR notable for ETEC, EAEC, EPEC but negative for shiga toxian and e. coli o157. Chest xray reviewed by me and with questionable lung opacity. He was ordered for fluids and antibiotics and admitted for further treatment. Family history: he denies any significant family history of cancer Discharge Providers Provider Date of admission: 11/03/22 06:37 Discharge Date: 11/06/22 Discharge provider: Asher Roberts DO Summary Hospital Course Discharge Diagnosis: Please see hospital course by problem list noted below Hospital Course: 1. Sepsis with acute organ dysfunction, secondary to E. coli gastroenteritis, bacterial pneumonia -Just a week ago per patient he was able to run multiple miles without significant dyspnea. Patient presented with tachycardia, tachypnea, fevers, toxic granulation noted on CBC along with diarrhea and shortness of breath. He recently returned to the [place] after a visit to [place]. He may have had unfiltered water but is not entirely sure. His was also ill but recovered quickly. Stool PCR for presenting diarrhea was positive for e. coli with eaec, etec, epec. Diarrhea has improved with antibiotic therapy thus far. -additional etiologies likely include RLL pneumonia noted on CXR and CT imaging, though concern for possible, yet less likely CLL lung involvement. He has not had hemoptysis or weight loss and TB is considered less likely given acuity of presentation. Given lack of response to antibiotics, slight worsening of appearance today, and continued hypoxia, recommend consideration of bronchoscopy at higher level facility given CTA findings today. CTA performed 11/06 for continued hypoxia was negative for PE. Showed continued consolidation with worsening appearance, also pericardial effusion and lymphadenopathy. Echocardiogram performed which was unremarkable except for evidence of pulmonary HTN. Lasix attempted without significant change today in symptoms as hypoxia appears positional as well (worst when on L side). -initially on cefepime from 11/03 until 11/05. Patient developed anxiety with cefepime infusion, requested change, so was changed to levofloxacin on 11/06. Stopped vancomycin on HD#2 with negative cultures and negative MRSA swab. -blood and urine cx NGTD at 72 hours, no sputum production for culture. -codeine/guaf prn cough -last fever was 11 pm on 11/05/22 at 102 degrees. 2. Probable CLL -presenting with WBC >200k, declining somewhat with abx treatment to 129K -differential shows lymphocytes and smudge cells, consistent with CLL, and flow cytometry consistent with CLL -infections are likely in setting of depressed immune system -fish, immunoglobins sent and are pending at the time of transfer -with continued anemia, 2U PRBC tranfusion in the last 2 days, may need inpatient treatment initiated. May need bone marrow biopsy in discussion with oncologists at multiple higher level facilities today. 3. Anemia and thrombocytopenia, likely acute on chronic, -initial hemoglobin quite low in 9s, MCV normal, worsening H/H -elev unconjugated bili, possibly secondary to hemolysis, however ldh and retic are normal. bilirubin improved from 2 to 1.4 today. -no signs or symptoms of GI bleeding. -haptoglobin unremarkable. -B12 nl, iron profile c/w iron def (% sat 10) -blood bank: warm antibody highly positive, RAUL highly + Anti-IgG, + anti-C3 -11/04 transfused 1 unit least incompatible PRBC with improvement in h/h, however decline again today to Hg 7.2 and gave 2nd unit. 4. Thrombocytopenia -etiology may be secondary to infection vs malignancy -trend daily, has been steadily declining to 118 today (149 on admit) -no indication for transfusion currently 5. HANNY, resolved -suspect secondary to hypovolemia from GI losses and possibly from infection -however patient does have E. coli infection and also notably anemia, and thrombocytopenia -trend creatinine, has improved from 1.46 to 1.02 today. 6. Hyponatremia, improving -suspect hypovolemic secondary to GI losses -d/c'd IVF on 11/04. 7. Coagulopathy -PT elevated, with initial PTT normal -etiology unclear 8. Hyponatremia ?- likely hypovolemic from diarrhea. improved today without fluids to 131. Dispo: Transfer to [facility], accepting physician is Dr. Hemphill. Time Spent with Patient Time spent: Greater than 30 minutes Exam Vital Signs (past 8 hours): - 11/06/22 12:02 11/06/22 12:05 11/06/22 12:20 Temperature 99.1 F 99.1 F 98.8 F Pulse Rate 101 H 101 H 105 H Respiratory Rate 18 18 22 Blood Pressure 145/82 H 145/82 H 147/88 H Pulse Oximetry Oxygen Delivery Method Oxygen Flow Rate 11/06/22 12:50 11/06/22 13:00 11/06/22 14:47 Temperature 99.8 F H 97.4 F L Pulse Rate 95 H 87 Respiratory Rate 18 20 Blood Pressure 153/89 H 132/81 Pulse Oximetry 94 95 Oxygen Delivery Method Nasal Cannula Oxygen Flow Rate 2 2 Fraction of Inspired Oxygen 28 Oxygen Delivery Method Nasal Cannula Oxygen Flow Rate 2 Narrative Exam Narrative: GEN: no acute distress HEENT: moist mucous membranes, PERRL NECK: trachea midline, no jvd PULM: clear bilaterally, no wheezes, rhonchi, rales CV: regular rate and rhythm, no murmurs ABD: soft, nontender, nondistended, no organomegaly EXT: warm and well perfused with no edema SKIN: no rashes, petechia noted NEURO: awake, alert, oriented, no focal deficits Objective Labs 11/06/22 09:15 11/06/22 09:15 Labs: Laboratory Results - last 24 hr 11/03/22 11/06/22 11/06/22 15:25 09:15 09:15 WBC 129.3 H* RBC 2.36 L Hgb 7.2 L Hct 23.1 L MCV 98.1 MCH 30.7 MCHC 31.3 RDW 17.6 H Plt Count 118 L Neut % (Auto) Not Reportable Lymph % (Auto) Not Reportable [place] % (Auto) Not Reportable Eos % (Auto) Not Reportable Baso % (Auto) Not Reportable Lymph # (Auto) Not Reportable [place] # (Auto) Not Reportable Baso # (Auto) Not Reportable Total Counted 100 Seg Neutrophils % 3.0 L Lymphocytes % (Manual) 97.0 H Neutrophils # (Manual) 3879 Smudge Cells 3+ H RBC Morphology See below Hypochromasia 1+ H Sodium 131 L Potassium 4.2 Chloride 101 Carbon Dioxide 20 L BUN 27 H Creatinine 1.02 Estimated GFR > 60 BUN/Creatinine Ratio 26.5 H Glucose 128 H Calcium 7.6 L Total Bilirubin 1.4 H AST 65 H ALT 32 Alkaline Phosphatase 49 NT-Pro-B Natriuret Pep Total Protein 6.1 L Albumin 2.6 L Globulin 3.5 Albumin/Globulin Ratio 0.7 L Blood Type A Positive Antibody Screen Positive Antibody Identification Warm Auto Antibody Crossmatch See Detail 11/06/22 09:15 WBC RBC Hgb Hct MCV MCH MCHC RDW Plt Count Neut % (Auto) Lymph % (Auto) [place] % (Auto) Eos % (Auto) Baso % (Auto) Lymph # (Auto) [place] # (Auto) Baso # (Auto) Total Counted Seg Neutrophils % Lymphocytes % (Manual) Neutrophils # (Manual) Smudge Cells RBC Morphology Hypochromasia Sodium Potassium Chloride Carbon Dioxide BUN Creatinine Estimated GFR BUN/Creatinine Ratio Glucose Calcium Total Bilirubin AST ALT Alkaline Phosphatase NT-Pro-B Natriuret Pep 582 H Total Protein Albumin Globulin Albumin/Globulin Ratio Blood Type Antibody Screen Antibody Identification Crossmatch [facility] Social History household members: significant other Smoking Status: Never smoker Discharge Plan Discharge Plan Patient Disposition: [facility] Under care of provider: Dr. Hemphill Provider Discharge Comment: Please see discharge summary Discharge Health Status Multidrug resistant organism: No MDRO Precautions: [place] Diet/Activity/Treatments Diet: Diet as Tolerated Liquid consistency: Normal/Thin Food texture: Regular Diet comment: As tolerated Activity: As tolerated
--- NOTE | 2022-11-06 20:02 | PC.NURSE ---
Pt report called to Su Marquez at [facility] ( [facility]) by Day shift RN. EMS arrived at 1999 to transport patient. He is transported by stretcher this evening.
== END 2022-11-06 20:10 | disposition short-term general hospital (02) | DRG 871 ==
LOC: ED 11-03 06:28 → AC 11-03 07:25
PROVIDERS: Internal Medicine; Student in an Organized Health Care Education/Training Program; Admitting Provider Internal Medicine; Emergency Provider Emergency Medicine; Referring Provider Emergency Medicine; Visit Provider Internal Medicine
DX: A41.51 Sepsis due to Escherichia coli [E. coli] (principal); J18.9 Pneumonia, unspecified organism; N39.0 Urinary tract infection, site not specified; N17.9 Acute kidney failure, unspecified; A04.4 Other intestinal Escherichia coli infections; C91.10 Chronic lymphocytic leukemia of B-cell type not having achieved remission; E87.1 Hypo-osmolality and hyponatremia; R65.20 Severe sepsis without septic shock; D64.9 Anemia, unspecified; D69.59 Other secondary thrombocytopenia; Z20.822 Contact with and (suspected) exposure to COVID-19
CPT/HCPCS: 36415; 36430; 71045; 71250; 71275; 74176; 80048; 80053; 81001; 82248; 82607; 82746; 82784; 83010; 83540; 83550; 83605; 83615; 83690; 83735; 83880; 84100; 84145; 84550; 85007; 85014; 85018; 85025; 85027; 85045; 85379; 85384; 85610; 85730; 86850; 86870; 86880; 86900; 86901; 86902; 87040; 87086; 87154; 87205; 87507; 87635; 87797; 88184; 93005; 93306; 96365; 96367; 96368; 96375; 99284; C9803; P9016; J0692; J0696; J1650; J1885; J1940; J1956; J2405